=== PATIENT | male | born 1960 | race Caucasian/White ===

== ENCOUNTER 2016-09-22 16:06 | Emergency (ER) | payer BC ==
[2016-09-22] MEDS ORDERED: FAMOTIDINE 20 MG/NACL 50 ML IV ONE (17:37)
[2016-09-22] MEDS ORDERED: NS 1,000 ML IV ONE (17:37)
--- NOTE | 2016-09-22 17:47 | EDPHY ---
H & P Time Seen by Provider: 09/22/16 17:26 HPI/ROS: CHIEF COMPLAINT: Abdominal pain and distension HISTORY OF PRESENT ILLNESS: This 56-year-old man has a history of appendectomy. He sees Gastroenterology Dr. Yoo. The patient developed abdominal pain starting this last week on Monday with feeling of spasms and abdominal distension. He is having some bowel movements but no gas. Pain is located in the epigastric region and radiates down inferiorly to both lower quadrants. He was started on Bentyl by his physician on Monday but it is not helping. Symptoms today are moderate and worse with any oral intake. REVIEW OF SYSTEMS: Eye: no change in vision ENT: no sore throat Cardiac: no chest pain or syncope Pulmonary: no cough or SOB Abdomen: HPI Musculoskeletal: Chronic back pain, unchanged Skin: no rash Neuro: no headache, no weakness or numbness in legs. Constitutional: no fever, increasing anxiety. : no urinary symptoms; no hematuria or dysuria. No hesitancy or retention. A comprehensive 10 point review of systems is otherwise negative aside from elements mentioned in the history of present illness. PAST MEDICAL HISTORY: Includes depression and anxiety, chronic back pain, migraines and irritable bowel Social history: Marijuana but no tobacco General Appearance: Alert and conversant, cooperative. Eyes: No scleral icterus. ENT, Mouth: Normal mucous membranes. Respiratory: Normal respiratory effort, breath sounds equal, lungs are clear to auscultation. Cardiovascular: Regular rate and rhythm. Gastrointestinal: Bilateral lower quadrant tenderness without rebound or guarding. Bowel sounds present. Not distended, no Blanco sign. Neurological: Alert and oriented x3. Normally conversant. Face symmetric, normal movement and sensation in all extremities. Skin: Warm and dry, no rashes. Musculoskeletal: No peripheral edema and no joint swelling. Psychiatric: Not agitated. Very anxious. Emergency Department course/MDM: Pepcid 20 mg IV, oral Bentyl, normal saline IV, i-STAT plans for CT abdomen and pelvis. 1900: Re-examined, feels better, nontender; the results discussed, patient offered anti spasmodic agents in the emergency department but declined and would prefer to go home. DC with 4 doses 5mg valium. Smoking Status: Never smoked Constitutional: Initial Vital Signs Temperature (C) 36.4 C 09/22/16 16:19 Heart Rate 89 09/22/16 16:19 Respiratory Rate 17 09/22/16 16:19 Blood Pressure 134/104 H 09/22/16 16:19 O2 Sat (%) 98 09/22/16 16:19 O2 Delivery Mode Room Air Allergies/Adverse Reactions: No Known Allergies Allergy (Verified 02/02/16 20:35) Home Medications: Medication Instructions Recorded CeleBREX 03/21/15 Acet/Caffeine/Buta Fioricet 04/21/15 [Fioricet (RX)] Alprazolam [Xanax Xr] 1 mg PO 04/21/15 Atorvastatin Calcium [Lipitor] 10 mg PO DAILY 04/21/15 Citalopram Hydrobromide [celeXA 10 10 mg PO DAILY 04/21/15 MG] Esomeprazole Magnesium [Nexium] 04/21/15 Gabapentin [Neurontin 100 MG (RX)] 04/21/15 Mirtazapine [Remeron Soltab] 15 mg PO DAILY 04/21/15 SUMAtriptan [Imitrex 25 MG (RX)] 04/21/15 risperiDONE [Risperdal 0.25mg (RX)] 04/21/15 Crestor 02/02/16 Cyclobenzaprine [Flexeril] 10 mg PO TIDPRN PRN #12 tab 02/02/16 Meloxicam 02/02/16 Trileptal 02/02/16 Medical Decision Making - Diagnostics Imaging: CT reported by Dr. An as nothing new at 6:55 p.m., 4 x 6 mm right lower lung nodule which will require 12 month follow-up. No reason for abdominal pain. Differential Diagnosis: Differential diagnosis considered for abdominal pain including but not limited to diverticulitis, bowel obstruction, cholecystitis, pancreatitis, gastritis and urinary tract infection. - Data Points Laboratory Results: Laboratory Results 09/22/16 17:48 09/22/16 17:48 09/22/16 09/22/16 09/22/16 17:49 17:48 17:48 WBC 5.70 10^3/uL 10^3/uL (3.80-9.50) RBC 4.66 10^6/uL 10^6/uL (4.40-6.38) Hgb 13.3 g/dL L g/dL (13.7-17.5) POC Hgb 13.6 gm/dL L gm/dL (14.5-17.3) Hct 39.2 % L % (40.0-51.0) POC Hct 40 % L % (42.8-50.6) MCV 84.1 fL fL (81.5-99.8) MCH 28.5 pg pg (27.9-34.1) MCHC 33.9 g/dL g/dL (32.4-36.7) RDW 14.1 % % (11.5-15.2) Plt Count 150 10^3/uL 10^3/uL (150-400) MPV 10.9 fL fL (8.7-11.7) Neut % (Auto) 58.2 % % (39.3-74.2) Lymph % (Auto) 31.2 % % (15.0-45.0) [place] % (Auto) 7.7 % % (4.5-13.0) Eos % (Auto) 1.9 % % (0.6-7.6) Baso % (Auto) 0.5 % % (0.3-1.7) Nucleat RBC Rel Count 0.0 % % (0.0-0.2) Absolute Neuts (auto) 3.31 10^3/uL 10^3/uL (1.70-6.50) Absolute Lymphs (auto) 1.78 10^3/uL 10^3/uL (1.00-3.00) Absolute Monos (auto) 0.44 10^3/uL 10^3/uL (0.30-0.80) Absolute Eos (auto) 0.11 10^3/uL 10^3/uL (0.03-0.40) Absolute Basos (auto) 0.03 10^3/uL 10^3/uL (0.02-0.10) Absolute Nucleated RBC 0.00 10^3/uL 10^3/uL (0-0.01) Immature Gran % 0.5 % % (0.0-1.1) Immature Gran # 0.03 10^3/uL 10^3/uL (0.00-0.10) POC Sodium 140 mEq/L mEq/L (134-144) Sodium 138 mEq/L mEq/L (134-144) POC Potassium 3.6 mEq/L mEq/L (3.3-5.0) Potassium 3.8 mEq/L mEq/L (3.5-5.2) POC Chloride 103 mEq/L mEq/L (96-108) Chloride 103 mEq/L mEq/L (97-110) Carbon Dioxide 25 mEq/l mEq/l (22-31) Anion Gap 10 mEq/L mEq/L (8-16) POC BUN 17 mg/dL mg/dL (7-23) BUN 17 mg/dL mg/dL (7-23) Creatinine 0.7 mg/dL mg/dL (0.7-1.3) POC Creatinine 0.7 mg/dL L mg/dL (0.8-1.5) Estimated GFR > 60 Glucose 93 mg/dL mg/dL (70-100) POC Glucose 97 mg/dL mg/dL (70-100) Calcium 9.4 mg/dL mg/dL (8.5-10.4) Total Bilirubin 0.3 mg/dL mg/dL (0.1-1.4) Conjugated Bilirubin 0.3 mg/dL mg/dL (0.0-0.5) Unconjugated Bilirubin 0.0 mg/dL mg/dL (0.0-1.1) AST 16 IU/L L IU/L (17-59) ALT 30 IU/L IU/L (21-72) Alkaline Phosphatase 78 IU/L IU/L (38-126) Total Protein 6.3 g/dL g/dL (6.3-8.2) Albumin 3.9 g/dL g/dL (3.5-5.0) Lipase 76.0 IU/L IU/L (23-300) Medications Given: Discontinued Medications Diazepam (Valium 5 Mg Prepack#4) 1 btl TAKEHOME EDNOW ONE Stop: 09/22/16 19:08 Last Admin: 09/22/16 19:16 Dose: 1 btl Dicyclomine HCl (Bentyl) 20 mg PO EDNOW ONE Stop: 09/22/16 17:55 Last Admin: 09/22/16 18:56 Dose: 20 mg Sodium Chloride (Ns) 1,000 mls @ 0 mls/hr IV ONCE ONE PRN Reason: Wide Open Stop: 09/22/16 17:38 Last Admin: 09/22/16 18:01 Dose: 1,000 mls Famotidine/Sodium Chloride (Pepcid 20 Mg (Premix)) 50 mls @ 200 mls/hr IV EDNOW ONE Stop: 09/22/16 17:51 Last Admin: 09/22/16 18:00 Dose: 50 mls Point of Care Test Results: 09/22/16 17:49 POC Sodium 140 POC Potassium 3.6 POC Chloride 103 POC BUN 17 POC Creatinine 0.7 L POC Glucose 97 Departure - Departure Disposition: Home, Routine, Self-Care Clinical Impression: Abdominal pain Qualifiers: Abdominal location: lower abdomen, unspecified Qualified Code(s): R10.30 - Lower abdominal pain, unspecified Condition: Good Instructions: Abdominal Pain (ED) Additional Instructions: Oral diazepam 5 mg every 12 hours as needed for abdominal cramping. Do not use alcohol or Xanax with the diazepam. You have a 4 x 6 mm right lung nodule which requires a noncontrast CT scan follow-up in 12 months. Referrals: Billie Goldberg MD [Primary Care Provider] - As per Instructions Arturo Yoo MD [Medical Doctor] - As per Instructions
[2016-09-22] MEDS ORDERED: DICYCLOMINE 20 MG TAB PO ONE (17:54)
[2016-09-22] MEDS ORDERED: IOPAMIDOL (ISOVUE-300) 100 ML BTL IV ONE (18:08)
[2016-09-22 18:20] LABS: % IMMATURE GRANULYOCYTES 0.5 % (0.0-1.1); ABSOLUTE IMMATURE GRANULOCYTES 0.03 10^3/uL (0.00-0.10); ADD DIFF? NO; ADD MORPH? NO; ADD SCAN? NO; ATYPICAL LYMPHOCYTE FLAG 10 (0-99); FRAGMENT RBC FLAG 0 (0-99); HEMATOCRIT 39.2 % (40.0-51.0); HEMOGLOBIN 13.3 g/dL (13.7-17.5); LEFT SHIFT FLG 20 (0-99); LIPEMIA HEMOLYSIS FLAG 90 (0-99); MEAN CELL HEMOGLOBIN 28.5 pg (27.9-34.1); MEAN CELL HEMOGLOBIN CONCENTR. 33.9 g/dL (32.4-36.7); MEAN CELL VOLUME 84.1 fL (81.5-99.8); MEAN PLATELET VOLUME 10.9 fL (8.7-11.7); PLATELET CLUMPS FLAG 0 (0-99); PLATELET COUNT 150 10^3/uL (150-400); RED BLOOD CELL COUNT 4.66 10^6/uL (4.40-6.38); RED CELL DISTRIBUTION WIDTH 14.1 % (11.5-15.2)
[2016-09-22 18:25] LABS: ALANINE AMINOTRANSFERASE 30 IU/L (21-72); ALBUMIN 3.9 g/dL (3.5-5.0); ALKALINE PHOSPHATASE 78 IU/L (38-126); ANION GAP 10 mEq/L (8-16); ASPARTATE AMINOTRANSFERASE 16 IU/L (17-59); BILIRUBIN,TOTAL 0.3 mg/dL (0.1-1.4); BILIRUBIN-CONJUGATED 0.3 mg/dL (0.0-0.5); CALCIUM 9.4 mg/dL (8.5-10.4); CARBON DIOXIDE 25 mEq/l (22-31); CHLORIDE 103 mEq/L (97-110); CREATININE 0.7 mg/dL (0.7-1.3); GLOMERULAR FILTRATION RATE > 60; GLUCOSE 93 mg/dL (70-100); POTASSIUM 3.8 mEq/L (3.5-5.2); SODIUM 138 mEq/L (134-144); TOTAL PROTEIN 6.3 g/dL (6.3-8.2)
[2016-09-22] MEDS ORDERED: DIAZEPAM 5 MG PREPACK#4 BTL TAKEHOME ONE (19:07)
[2016-09-22 19:28] VITALS: BP 129/95; PULSE 85; RESP 12; TEMP 98.4; O2SAT 95
== END 2016-09-22 19:30 | disposition home or self-care (01) ==
DX: R10.30 Lower abdominal pain, unspecified (principal)
CPT/HCPCS: 82947-QW; 96374; Q9967

== ENCOUNTER 2017-02-04 12:20 | Inpatient (IN) | payer BC ==
--- NOTE | 2017-02-04 12:49 | CPEKG ---
Heart Rate: 79 RR Interval: 759 P-R Interval: 212 QRSD Interval: 82 QT Interval: 360 QTC Interval: 413 P [place]: 64 QRS [place]: 31 T Wave [place]: 24 EKG Severity - ABNORMAL ECG - EKG Impression: SINUS RHYTHM EKG Impression: FIRST DEGREE AV BLOCK Electronically Signed By: Jamie Pina 07-Feb-2017 14:35:06
--- NOTE | 2017-02-04 12:49 | EDPHY ---
HPI/HX/ROS/PE/MDM Narrative: CHIEF COMPLAINT: Chest pain HPI: The patient is a 57-year-old male who complains of intermittent chest pain for the past few weeks. Patient reports this pain has progressively worsened over the past few days. While at a [place] show a few days ago the patient became very short of breath and was diaphoretic after walking up the stairs. He developed chest pain at that time. This chest pain remained present throughout the concert and for the following two days. He saw his PCP and had a normal EKG. Patient went to another concert last night and developed chest heaviness. He reports intermittent "stabbing pains" and states his "left arm feels like a rock" when he has the chest pain. The patient has a history of anxiety, he is unsure if his symptoms are secondary to anxiety. The patient additionally notes headache for the past few days. He states he has gained 60 pounds over past 2 years. REVIEW OF SYSTEMS: Aside from elements discussed in the HPI, a comprehensive 10-point review of systems was reviewed and is negative. PMH: Anxiety SOCIAL HISTORY: Single. Lives in [place]. PHYSICAL EXAM: General: Patient is alert, in no acute distress. ENT: Eyes are normal to inspection. ENT inspection normal. Neck: Normal inspection. Full range of motion. Respiratory: No respiratory distress. Breath sounds normal bilaterally. Cardiovascular: Regular rate and rhythm. Strong peripheral pulses. Abdomen: The abdomen is nontender to palpation. There are no peritoneal signs. There are normal bowel sounds. Back: Normal to inspection. No tenderness to palpation. Skin: Normal color. No rash. Warm and dry. Extremities: Normal appearance. Full range of motion. Neuro: Oriented x3. Normal motor function. Normal sensory function. ED Course: Patient presents with intermittent chest pain that has been worsening over the past few days. Patient complains of stabbing chest pain that has been occurring more frequently with exertion. He has associated left arm heaviness as well as shortness of breath and diaphoresis. Plan for cardiac workup including chest x- ray, lab work, and Troponin. EKG was ordered and interpreted by myself: Sinus rhythm, AV block. Please see [employer] system for official reading. Chest x-ray is negative for acute findings. Troponin is negative. Lab work up is unremarkable. 1445: I spoke to the hospitalist, Dr. Vincent, who accepts patient for admission. MDM: This patient presents with exertional chest pain in the setting of multiple cardiac risk factors. I am very concerned this represents myocardial ischemia. I see no signs of PE, PTX, TAD, chest wall trauma or STEMI at this time. - Data Points Imaging Results: Imaging Impressions Chest X-Ray 02/04/17 13:10 Impression: Hypoventilatory chest with no acute findings. Imaging: Discussed imaging studies w/ call worker person Radiologist, I viewed and interpreted images myself Laboratory Results: Laboratory Results 02/04/17 12:57 02/04/17 12:57 02/04/17 02/04/17 12:57 12:57 WBC 7.21 10^3/uL 10^3/uL (3.80-9.50) RBC 4.76 10^6/uL 10^6/uL (4.40-6.38) Hgb 13.7 g/dL g/dL (13.7-17.5) Hct 40.9 % % (40.0-51.0) MCV 85.9 fL fL (81.5-99.8) MCH 28.8 pg pg (27.9-34.1) MCHC 33.5 g/dL g/dL (32.4-36.7) RDW 13.8 % % (11.5-15.2) Plt Count 187 10^3/uL 10^3/uL (150-400) MPV 10.8 fL fL (8.7-11.7) Neut % (Auto) 72.3 % % (39.3-74.2) Lymph % (Auto) 20.2 % % (15.0-45.0) [place] % (Auto) 5.7 % % (4.5-13.0) Eos % (Auto) 0.8 % % (0.6-7.6) Baso % (Auto) 0.7 % % (0.3-1.7) Nucleat RBC Rel Count 0.0 % % (0.0-0.2) Absolute Neuts (auto) 5.21 10^3/uL 10^3/uL (1.70-6.50) Absolute Lymphs (auto) 1.46 10^3/uL 10^3/uL (1.00-3.00) Absolute Monos (auto) 0.41 10^3/uL 10^3/uL (0.30-0.80) Absolute Eos (auto) 0.06 10^3/uL 10^3/uL (0.03-0.40) Absolute Basos (auto) 0.05 10^3/uL 10^3/uL (0.02-0.10) Absolute Nucleated RBC 0.00 10^3/uL 10^3/uL (0-0.01) Immature Gran % 0.3 % % (0.0-1.1) Immature Gran # 0.02 10^3/uL 10^3/uL (0.00-0.10) Sodium 138 mEq/L mEq/L (134-144) Potassium 4.3 mEq/L mEq/L (3.5-5.2) Chloride 105 mEq/L mEq/L (97-110) Carbon Dioxide 20 mEq/l L mEq/l (22-31) Anion Gap 13 mEq/L mEq/L (8-16) BUN 14 mg/dL mg/dL (7-23) Creatinine 0.7 mg/dL mg/dL (0.7-1.3) Estimated GFR > 60 Glucose 110 mg/dL H mg/dL (70-100) Calcium 9.9 mg/dL mg/dL (8.5-10.4) Troponin I < 0.012 ng/mL ng/mL (0-0.034) Medications Given: Discontinued Medications Aspirin (Aspirin) 324 mg PO EDNOW ONE Stop: 02/04/17 13:11 Last Admin: 02/04/17 13:31 Dose: 324 mg Morphine Sulfate (Morphine) 2 mg IVP EDNOW ONE Stop: 02/04/17 13:11 Last Admin: 02/04/17 13:32 Dose: 2 mg General Time Seen by Provider: 02/04/17 12:36 Initial Vital Signs: Initial Vital Signs Temperature (C) 36.5 C 02/04/17 12:25 Heart Rate 81 02/04/17 12:25 Respiratory Rate 18 02/04/17 12:25 Blood Pressure 138/92 H 02/04/17 12:25 O2 Sat (%) 98 02/04/17 12:25 O2 Delivery Mode Room Air O2 (L/minute) 2 Allergies/Adverse Reactions: No Known Allergies Allergy (Verified 02/04/17 12:29) Home Medications: Medication Instructions Recorded Oxcarbazepine [Trileptal] 600 mg PO BID 02/02/16 ALPRAZolam [Alprazolam Xr] 3 mg PO DAILY@89902/04/17 ALPRAZolam [Xanax Xr] 2 mg PO DAILY@209902/04/17 Butal/Asp/Caffeine-Fiorinal 1 each PO BID 02/04/17 [Fiorinal 50-325-40 mg Cap] Cholecalciferol Vit D3 [Vitamin D3 2,000 units PO DAILY@89902/04/17 (*)] Cyanocobalamin [Vitamin B12 (*)] 2,000 mcg PO DAILY@209902/04/17 Esomeprazole Mag Trihydrate 40 mg PO BID 02/04/17 [Nexium] Herbals/Supplements -Info Only 1 each IM Q30D 02/04/17 Losartan Potassium [Cozaar 50 mg 50 mg PO DAILY@209902/04/17 (*)] Mirtazapine [Remeron] 30 mg PO DAILY@209902/04/17 Oxcarbazepine [Trileptal] 150 mg PO BID 02/04/17 PHENobarbital [PHENobarbital 30mg 15 mg PO DAILY@209902/04/17 (*)] Pregabalin [Lyrica 50mg (*)] 50 mg PO BID 02/04/17 Sumatriptan Succinate [Imitrex] 100 mg PO ONCE PRN MDD 200 MG 02/04/17 Venlafaxine Xr [Effexor Xr 75MG 75 mg PO DAILY@209902/04/17 (*)] Venlafaxine Xr [Effexor Xr] 150 mg PO DAILY@89902/04/17 predniSONE 5 mg PO DAILY@89902/04/17 risperiDONE [RisperDAL] 1 mg PO DAILY@209902/04/17 Departure - Departure Disposition: [facility] Inpatient Acute Clinical Impression: Chest pain Qualifiers: Chest pain type: unspecified Qualified Code(s): R07.9 - Chest pain, unspecified Condition: Fair Report Scribed for: Alex Horton Report Scribed by: Nereida Rodriguez Date of Report: 02/04/17 Time of Report: 12:49 Physician Review and Approval Statement: Portions of this note were transcribed by a medical transcriber. I personally performed the history, physical exam, and medical decision-making; and confirmed the accuracy of the information in the transcribed note.
[2017-02-04] MEDS ORDERED: ASPIRIN 81 MG CHEWABLE TAB PO ONE (13:10)
[2017-02-04 13:16] LABS: % IMMATURE GRANULYOCYTES 0.3 % (0.0-1.1); ABSOLUTE IMMATURE GRANULOCYTES 0.02 10^3/uL (0.00-0.10); ADD DIFF? NO; ADD MORPH? NO; ADD SCAN? NO; ATYPICAL LYMPHOCYTE FLAG 0 (0-99); FRAGMENT RBC FLAG 0 (0-99); HEMATOCRIT 40.9 % (40.0-51.0); HEMOGLOBIN 13.7 g/dL (13.7-17.5); LEFT SHIFT FLG 0 (0-99); LIPEMIA HEMOLYSIS FLAG 80 (0-99); MEAN CELL HEMOGLOBIN 28.8 pg (27.9-34.1); MEAN CELL HEMOGLOBIN CONCENTR. 33.5 g/dL (32.4-36.7); MEAN CELL VOLUME 85.9 fL (81.5-99.8); MEAN PLATELET VOLUME 10.8 fL (8.7-11.7); PLATELET CLUMPS FLAG 0 (0-99); PLATELET COUNT 187 10^3/uL (150-400); RED BLOOD CELL COUNT 4.76 10^6/uL (4.40-6.38); RED CELL DISTRIBUTION WIDTH 13.8 % (11.5-15.2)
[2017-02-04 13:32] LABS: ANION GAP 13 mEq/L (8-16); CALCIUM 9.9 mg/dL (8.5-10.4); CARBON DIOXIDE 20 mEq/l (22-31); CHLORIDE 105 mEq/L (97-110); CREATININE 0.7 mg/dL (0.7-1.3); GLOMERULAR FILTRATION RATE > 60; GLUCOSE 110 mg/dL (70-100); POTASSIUM 4.3 mEq/L (3.5-5.2); SODIUM 138 mEq/L (134-144)
[2017-02-04 13:44] LABS: TROPONIN I < 0.012 ng/mL (0-0.034)
[2017-02-04] MEDS ORDERED: ONDANSETRON 4 MG/2 ML VIAL IVP PRN (14:42)
[2017-02-04] MEDS ORDERED: ONDANSETRON DISINTEGRATING 4 MG TAB PO PRN (14:42)
[2017-02-04] MEDS ORDERED: NS 500 ML IV ONE (14:42)
[2017-02-04] MEDS ORDERED: ACETAMINOPHEN 325 MG TAB PO PRN (14:42)
[2017-02-04] MEDS ORDERED: NS 1,000 ML IV ONE (15:38)
[2017-02-04] MEDS ORDERED: KETOROLAC 30 MG/1 ML SDV IVP ONE (15:39)
[2017-02-04] MEDS ORDERED: PROMETHAZINE HCL 25 MG/ML INJ IVP ONE (15:39)
[2017-02-04] MEDS ORDERED: BUTAL/ASP/CAFFEINE-FIORINAL 1 EACH CAP PO PRN (17:29)
--- NOTE | 2017-02-04 17:35 | GHP ---
[f rep st] HISTORY AND PHYSICAL DATE OF ADMISSION: 02/04/2017 CHIEF COMPLAINT: Chest pain. HISTORY OF PRESENT ILLNESS: A 57-year-old male with a history of fibromyalgia, suspected polymyalgia rheumatica, and depression/anxiety, who presents with several weeks of intermittent left-sided chest pressure and occasionally sharp chest pain. The patient reports that, in the course of the last 2-3 weeks, he has had increasing frequency of episodes of chest tightness on the left side of his chest associated with a heavy feeling left arm, and occasionally associated with a sharp stabbing left-sided chest pain. These episodes can last anywhere from minutes to hours, are not predictably provoked by exertion, but can come on with exertion and respond to rest, but additionally can come on at rest. The patient predictably has diaphoresis and shortness of breath with the episodes, and notes that in the course of the last week or so they have been occurring with more regular frequency. Patient is a frequent concert goer, and has noticed particularly at [place] on walking up the stairs that he becomes very winded with a tight chest and diaphoresis. The patient does report having had a cardiac scan of his heart in the last year and reported that his calcium score was quite low. He did see his primary care for these complaints, Dr. Goldberg, who performed an EKG which was normal. He then continued to have symptoms; therefore, presented to the emergency department. In the ED, the patient is reporting headache. Denies vision changes. Denies dysphagia. Is having low-level chest pressure. Denies shortness of breath. Denies pleuritic chest pain. Denies nausea and vomiting. Has had mild constipation recently. Denies dysuria. Denies lower extremity edema. Does have chronic peripheral neuropathy of the bilateral feet. Patient reports a 60-pound weight gain in the past year and a half to 2 years, that he attributes to the use of psychotropic medications. PAST MEDICAL HISTORY: 1. Major depressive disorder. 2. Anxiety. 3. Fibromyalgia. 4. Polymyalgia rheumatica. His activities leader actively weaning daily prednisone. 5. Peripheral neuropathy. 6. Obesity; BMI of 33. SOCIAL HISTORY: Negative for tobacco, alcohol, illicit drugs, and marijuana. FAMILY HISTORY: Positive for mother who has had 2 cardiac stents placed in her 60s, and a grandfather on the maternal side who has history of a stroke. ADVANCED DIRECTIVES: Patient is full code, full tube. REVIEW OF SYSTEMS: A 10-point review of systems is negative with the exception of that reported in the HPI. PHYSICAL EXAMINATION: VITAL SIGNS: Blood pressure is 144/95 heart rate 74, respiratory rate 16, 95% on room air 36 5. GENERAL: This is an obese-appearing middle-aged male. HEENT: Notable for moist mucous membranes. Eye negative for any icterus. CARDIAC: Regular rate and rhythm. No murmurs, gallops, or rubs. PULMONARY: Clear to auscultation bilaterally. GASTROINTESTINAL: Positive bowel sounds. ABDOMEN: Distended, obese, and nontender in all 4 quadrants. MUSCULOSKELETAL: Negative for any lower extremity edema. SKIN: Negative for any rashes. NEUROLOGIC: Alert and oriented x3. PSYCHIATRIC: He appears anxious on my examination. DATA: White count 7.2, hematocrit 40.9, platelets of 187. Creatinine 0.7. Troponin less than 0.012. EKG, which I personally reviewed and interpreted, shows sinus rhythm with 1st degree AV block, no acute ST-T changes. Chest x-ray , which I personally reviewed and interpreted, shows no acute infiltrates or edema. ASSESSMENT AND PLAN: This is a 57-year-old male presenting with chest pain. 1. Acute chest pain. It is very reassuring that the patient is presenting with a recent cardiac calcium score that is low. An episode of chest pain he reports the evening prior to presentation that lasted many hours, and the patient is presenting with a negative troponin. EKG is benign. Will admit the patient for serial troponins and EKGs. If he rules out, will order a nuclear stress as the patient does not feel he could effectively treadmill test. 2. Obesity. Suspect patient is correct that some of his psychoactive medications likely have contributed to weight gain. He is receiving active coaching from Dr. Goldberg in the outpatient setting about lifestyle modification, and I have encouraged him to continue on that path. 3. Major depressive disorder/anxiety. Patient is on a multi-drug regimen which will continue once reconciled. 4. Suspected polymyalgia rheumatica. Patient reports that his full body pain improved quite a lot on daily prednisone dosing. It sounds as if his activities leader has been working to wean his dose. He reports when he got to prednisone 5, he started having symptoms again; was weaned down to 2 but has self up titrated back to 5 in the past week. Will continue this 5 mg dosing while inpatient. 5. Acute Headache - pt with chronic intermittent headaches - would like to avoid narcotics - trial IV phenergan and toradol 6. Diet: Cardiac. 7. Prophylaxis: Treating with Lovenox as I do not expect the patient will get up and move much while hospitalized. DISPOSITION: I expect less than 2 midnights if the patient effectively rules out overnight and has negative stress testing in the morning. I have discussed the case with the emergency room physician. Patient will be triaged to the medical-surgical floor for care. /[id number]/MODL MTDD
[2017-02-04] MEDS ORDERED: OXCARBAZEPINE 600 MG PO SCH (21:00)
[2017-02-04] MEDS ORDERED: ALPRAZOLAM 2 MG PO SCH (21:00)
[2017-02-04] MEDS: risperiDONE 1 MG TAB PO SCH (21:37)
[2017-02-04] MEDS: PREGABALIN 50 MG CAP PO SCH (21:37)
[2017-02-04] MEDS: VENLAFAXINE XR 75 MG CAP PO SCH (21:37)
[2017-02-04] MEDS: ALPRAZolam 1 MG TAB PO SCH (21:37)
[2017-02-04] MEDS: MIRTAZAPINE 30 MG TAB PO SCH (21:37)
[2017-02-04] MEDS: CYANO/VITAMIN B12 1000 MCG TAB PO SCH (21:37)
[2017-02-04] MEDS: PANTOPRAZOLE SODIUM 40 MG TAB PO SCH (21:38)
[2017-02-04] MEDS: LOSARTAN POTASSIUM 50 MG TAB PO SCH (21:38)
[2017-02-04] MEDS: PHENobarbital 30 MG TAB PO SCH (21:39)
[2017-02-04] MEDS: OXcarbazepine 300 MG TAB PO SCH (21:40)
[2017-02-04] MEDS: KETOROLAC 30 MG/1 ML SDV IVP PRN (22:04)
[2017-02-04] MEDS: PROMETHAZINE HCL 25 MG/ML INJ IVP PRN (22:04)
[2017-02-05] MEDS: ALPRAZolam 1 MG TAB PO PRN ×2 (05:03→22:14)
[2017-02-05] MEDS: KETOROLAC 30 MG/1 ML SDV IVP PRN ×4 (05:03→22:14)
[2017-02-05] MEDS: PROMETHAZINE HCL 25 MG/ML INJ IVP PRN ×4 (05:03→22:15)
[2017-02-05] MEDS ORDERED: REGADENOSON 0.4 MG/5 ML SYR IVP ONE (09:00)
[2017-02-05] MEDS ORDERED: ALPRAZOLAM 3 MG PO SCH (09:00)
--- NOTE | 2017-02-05 09:34 | PDCARST ---
CAR Stress Test Results Type of Stress Test: lexiscan tm Indication: cp Impression: uneventful lexiscan tm..no issues Conclusion: await nuclear images
[2017-02-05] MEDS: VENLAFAXINE XR 150 MG CAP PO SCH (10:11)
[2017-02-05] MEDS: ALPRAZolam 1 MG TAB PO SCH ×3 (10:11→20:12)
[2017-02-05] MEDS: OXcarbazepine 300 MG TAB PO SCH ×2 (10:12→20:09)
[2017-02-05] MEDS: PREGABALIN 50 MG CAP PO SCH ×2 (10:14→20:12)
[2017-02-05] MEDS: predniSONE 5 MG TAB PO SCH (10:14)
[2017-02-05] MEDS: ENOXAPARIN 40 MG/0.4 ML SYR SC SCH (10:17)
[2017-02-05] MEDS: PANTOPRAZOLE SODIUM 40 MG TAB PO SCH ×2 (10:23→20:09)
[2017-02-05] MEDS: CHOLECALCIFEROL VIT D3 2,000 UNITS TAB/CAP PO SCH (10:23)
--- NOTE | 2017-02-05 13:40 | HOSPPROG ---
Hospitalist Progress Note Assessment/Plan: 57y male with c/o CP. This is my first encounter, chart reviewed. D/W Dr Jameson. #CP stress test done some abnormalities needs resting test in am symptoms have resolved and trop is negative #Headache cont home meds #Anxiety cont home meds stable #SOB none currently #Obesity lifestyle changes reviewed #Poly rheumatica cont home meds #Dispo await resting study change to inpt status Subjective: Feeling anxious about situation. C/O headache. Objective: Vital Signs Temp Pulse Resp BP Pulse Ox 36.6 C 63 14 124/83 H 93 02/05/17 08:00 02/05/17 08:00 02/05/17 08:00 02/05/17 08:00 02/05/17 08:00 - Physical Exam Constitutional: appears nourished, not in pain, obese Eyes: PERRL, anicteric sclera, EOMI Ears, Nose, Mouth, Throat: moist mucous membranes, hearing normal, ears appear normal Cardiovascular: regular rate and rhythym, no murmur, rub, or gallop, No JVD Respiratory: no respiratory distress, no rales or rhonchi, reduced air movement Gastrointestinal: normoactive bowel sounds, soft, non-tender abdomen, No tenderness, No ascites Skin: warm, normal color, No erythema Musculoskeletal: full muscle strength, normal joint ROM, no joint effusions Neurologic: AAOx3 Psychiatric: not encephalopathic, thought process linear, anxious ICD10 Worksheet Patient Problems: Problems Problem Status Onset Chest pain Acute
[2017-02-05] MEDS: SUMAtriptan 50 MG TAB PO PRN (14:07)
[2017-02-05] MEDS: risperiDONE 1 MG TAB PO SCH (20:09)
[2017-02-05] MEDS: PHENobarbital 30 MG TAB PO SCH (20:09)
[2017-02-05] MEDS: LOSARTAN POTASSIUM 50 MG TAB PO SCH (20:10)
[2017-02-05] MEDS: CYANO/VITAMIN B12 1000 MCG TAB PO SCH (20:12)
[2017-02-05] MEDS: VENLAFAXINE XR 75 MG CAP PO SCH (20:12)
[2017-02-05] MEDS: MIRTAZAPINE 30 MG TAB PO SCH (20:12)
[2017-02-06] MEDS: ALPRAZolam 1 MG TAB PO PRN ×2 (03:31→13:29)
[2017-02-06] MEDS: predniSONE 5 MG TAB PO SCH (09:11)
[2017-02-06] MEDS: ALPRAZolam 1 MG TAB PO SCH ×3 (09:11→20:16)
[2017-02-06] MEDS: PREGABALIN 50 MG CAP PO SCH ×2 (09:11→20:16)
[2017-02-06] MEDS: CHOLECALCIFEROL VIT D3 2,000 UNITS TAB/CAP PO SCH (09:11)
[2017-02-06] MEDS: PANTOPRAZOLE SODIUM 40 MG TAB PO SCH ×2 (09:11→20:17)
[2017-02-06] MEDS: OXcarbazepine 300 MG TAB PO SCH ×2 (09:12→20:15)
[2017-02-06] MEDS: VENLAFAXINE XR 150 MG CAP PO SCH (09:12)
--- NOTE | 2017-02-06 09:32 | HOSPPROG ---
Hospitalist Progress Note Assessment/Plan: 57y male with c/o CP. This is my first encounter, chart reviewed. #CP stress test done/ shows anterior & Posterior wall defects resting test today patient has family hx of heart disease in both mom and dad trop are negative 12 lead shows sinus rhythm #Headache none today #GERD PPI #Anxiety cont home meds stable #SOB none currently #Obesity lifestyle changes reviewed he has put on weight w the prednisone, Lyrica, Remeron going to consider starting pool therapy #Poly rheumatica prednisone #Dispo pending/awaiting cardiology to further evaluate Subjective: Andrea is having no c/o chest pain but it occurs intermittently. Objective: Vital Signs Temp Pulse Resp BP Pulse Ox 36.6 C 72 16 152/88 H 93 02/06/17 07:13 02/06/17 07:13 02/06/17 07:13 02/06/17 07:13 02/06/17 07:13 - Physical Exam Constitutional: not in pain Eyes: PERRL Ears, Nose, Mouth, Throat: hearing normal Cardiovascular: regular rate and rhythym Respiratory: no respiratory distress Gastrointestinal: normoactive bowel sounds Skin: warm Musculoskeletal: full muscle strength Neurologic: AAOx3 Psychiatric: interacting appropriately ICD10 Worksheet Patient Problems: Problems Problem Status Onset Chest pain Acute
[2017-02-06] MEDS: ENOXAPARIN 40 MG/0.4 ML SYR SC SCH (09:49)
[2017-02-06] MEDS: PROMETHAZINE HCL 25 MG/ML INJ IVP PRN ×2 (11:43→20:14)
[2017-02-06] MEDS: KETOROLAC 30 MG/1 ML SDV IVP PRN ×2 (11:44→20:14)
--- NOTE | 2017-02-06 14:34 | GCON ---
[f rep st] CONSULTATION CARDIOLOGY CONSULTATION CHIEF COMPLAINT: Chest pain. HISTORY OF PRESENT ILLNESS: The patient is a big man, who has been getting big chest pain. He has been noticing when he goes to [employer] lately, that he cannot climb very well and g ets short of breath. On the stairs at [employer], he gets short of breath. He does not get chest pa in. In the last week or 10 days, he has developed more left chest pressure, and it sort takes his b reath away a bit, and it bothers him a good deal, significant discomfort. He has been noticing this pressure. It has been getting more frequent and more severe, and it is on the left chest. It does not wake him up and it does not occur at sleep. He has no orthopnea normally. He has no PND. He has no peripheral edema. He is not lightheaded or dizzy. He has not had syncope or near syncope. He is not having palpitations. He has not had any trauma to the head, neck, or chest recently. He has no history of rheumatic disease, claudication or cerebrovascular disease. No history of hemoptysis, tuberculosis, peripheral edema. He has no history of atrial arrhythmias, atrial fibrillation and pulmonary embolic disease. No hist ory of deep venous thrombosis. He has not had fever and chills. No nausea, vomiting, diarrhea, or constipation. No dysuria or frequency. No upper respiratory tract symptoms. CARDIAC RISK FACTORS: Positive for obesity, hypertension, pre diabetes, hyperlipidemia. Negative for smoking, hyperuricemia or family history of premature coronary disease. He has no known coronary artery disease. ALLERGIES: None. MEDICATIONS AT HOME: Include Effexor, Lyrica, codeine, Risperdal, Imitrex, Remeron, Nexium and Xana x. Chronic prednisone use. REVIEW OF SYSTEMS: A 12-point review of systems negative, except as noted above. NEUROLOGIC: He also has a very significant peripheral neuropathy. ENDOCRINE: He is markedly obese . PSYCHIATRIC: He has major depressive issues. He is totally disabled with mental health issues. He has chronic anxiety. MUSCULOSKELETAL: He has fibromyalgia. RHEUMATIC: He has polymyalgia rheuma fei. FAMILY HISTORY: No premature coronary disease. No history of unexplained sudden at a young a ge. SOCIAL HISTORY: He was born in [place], [place]. He stayed there until 15, at which point he was sophomore in high school. He went to [employer] to finish high school. 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, and then to [employer], and he studied [employer], Management is 3 degrees and that. He is disabled as him for mental health issues. He does not smoke. He does not drink significant a renae of alcohol. He tries to walk on a regular basis, but he is a very hard time on a consistent basis, because of hi s neuropathy. He also has gained 60 pounds in the last year from medications. PHYSICAL EXAMINATION: VITAL SIGNS: Blood pressure 130/70, heart rate 66, respiratory rate 12, afeb rile. HEENT: Pupils equal and reactive. Mucous membranes and mouth moist. NECK: Supple. CARDIO VASCULAR: S1, S2. Soft systolic murmur, left sternal border. No diastolic murmur. No S3, S4, no rubs. PULMONARY: Rhonchi bilaterally. No rales, wheezing, or dullness. ABDOMEN: Soft, nontender , without masses. EXTREMITIES: No edema, inflammation or ulceration. NEURO: Cranial nerves 2-12 grossly normal. Motor and sensory intact. SKIN: Age-related changes. PSYCH: No obvious anxiety or depression. LABORATORY DATA: Creatinine 0.7, glucose 110. Troponin negative. Sodium 138, potassium 4.3, chlor radha 105, CO2 is 20. White count 7.21, hematocrit is 40, platelets are 187. Chest x-ray reported as negative. EKG shows no acute changes. Repeat troponin 0.012. Nuclear stress test: He has an abnormal nuclear stress test with possibly an anterior defect. ASSESSMENT AND PLAN: 1. Chest pain. 2. Shortness of breath. 3. Dyspnea on exertion. 4. A 60-pound weight gain. 5. Anxiety. 6. Depression. 7. Polymyalgia rheumatica. 8. Fibromyalgia. 9. Neuropathy. 10. Obesity. 11. Dyslipidemia. 12. Diabetes. 13. Hypertension. This gentleman has many risk factors for coronary disease. He reports a calcium score of 1 within t he year. Nonetheless, he is getting exertional left chest pressure on a regular basis, and has all these risk factors, so I went over with him the options, which could include seeing him in the offic e, following him very closely, and doing a repeat nuclear study and/or coronary angiography. I suly mmend coronary angiography, even though he has calcium score of 1, because of his many risk factors, and the classic sound to his story of chest discomfort, as an anginal equivalent. I would be very concerned if he did not have an angiogram and went home with incomplete data, in the sense that he could have a myocardial infarction with all the possible sequelae. He has agreed to angiography, at least he is going to think about it overnight. If he gets too anxi ous or upset about it, he may change his mind tomorrow, but for now, he is on for tomorrow. This chest pain, in terms of the differential diagnosis, there is nothing to suggest disease of the great vessels. Pulses are full and equal. Nothing to suggest pulmonary embolic disease. Nothing t o suggest congenital anomalies. There is nothing to suggest major GI or pulmonary pathology right at this time. However, we will wa tch him closely and see what develops. It would be quite unlikely to have significant obstructive coronary disease, if his calcium score sonal whitaker is 1, but I am one who does not believe in calcium scores, so I would not want to hang my hat on that. It is said that, if the calcium score is 0, the predictive risk of that is very accurate, but this i s not a 0. We will see what he wants to do tomorrow, and go from there. I talked to the hospitalists about his consultation. /[id number]/MODL
--- NOTE | 2017-02-06 16:44 | ECHO ---
[id number] + + [address] : : [place] [address] : : [phone] + + Adult Echocardiographic Report + + :Name: JEWELL MIXjennyalla Date: 02/06/2017 03:15 PM : : Hospital Admission Number: [id number] Lo cation: 372: :: 1960 Gender: Male Height: 75 in : :Age: 57 yrs Race: WH Weight: 26 7 lb : :Reason For Study: Eval LV Fx : : BSA: 2.5 m eters2 : :History: Chest Pressure : + + MMode/2D Measurements \T\ Calculations IVSd: 1.0 cm LVIDd: 3.8 cm FS: 40.9 % Ao root diam: 3.2 cm LVPWd: 1.2 cm LVIDs: 2.3 cm EDV(Teich): 62.9 ml ACS: 1.7 cm ESV(Teich): 17.3 ml EF(Teich): 72.5 % Normal Measurement Values: + + :LVIDd (3.5-5.7cm) IVSd (0.6-1.1cm) LVPWd (0.6-1.1cm) Aortic Root (2.0-3.7cm)Left Atrium (1.5-4.0cm): :LV Vol(d) (76-115ml) LV Vol(s) (29-48ml) Ejec Fraction (50-65%)PV Christopher (0.6- 1.2m/s) TV Christopher (0.4-1.0m/s) : :MV E Christopher (0.8-1.0m/s)MV A Christopher (0.3-1.0m/s)LVOT Christopher (0.7-1.2m/s) Asc Ao Christopher ( 0.9-1.8m/s) : + + Doppler Measurements \T\ Calculations MV E max christopher: Ao V2 max: LV V1 max: PA V2 max: 76.0 cm/sec 143.9 cm/sec 101.2 cm/sec 120.8 cm/sec MV A max christopher: Ao max PG: LV V1 max PG: PA max P.4 cm/sec 8.3 mmHg 4.1 mmHg 5.8 mmHg MV E/A: 0.90 Left Ventricle The left ventricle is normal in size. There is normal left ventricular wall thickness. The left ventricular ejection fraction is normal. There is Doppler evidence for diastolic dysfunction. Ejection Fraction = 72%. The left ventricular wall motion is normal. Right Ventricle The right ventricle is normal in size and function. Atria The left atrial size is normal. Right atrial size is normal. Mitral Valve The mitral valve is normal in structure and function. There is no evidence of mitral valve prolapse. There is no mitral valve stenosis. There is no mitral regurgitation noted. Tricuspid Valve The tricuspid valve is normal in structure and function. There is trace tricuspid regurgitation. Right ventricular systolic pressure is normal. Aortic Valve The aortic valve is normal in structure and function. The aortic valve is trileaflet. The aortic valve opens well. There is no aortic stenosis. There is no aortic insufficiency. Pulmonic Valve The pulmonic valve is normal in structure and function. There is no pulmonic valvular regurgitation. Conclusion A complete two-dimensional transthoracic echocardiogram was performed (2D, M-mode, Doppler and color flow Doppler). The left ventricular ejection fraction is normal. There is Doppler evidence for diastolic dysfunction. Ejection Fraction = 72%. The left ventricular wall motion is normal. The right ventricle is normal in size and function. The left atrial size is normal. The mitral valve is normal in structure and function. The tricuspid valve is normal in structure and function. There is trace tricuspid regurgitation. Right ventricular systolic pressure is normal. The aortic valve is normal in structure and function. The aortic valve is trileaflet. The pulmonic valve is normal in structure and function. There is no pulmonic valvular regurgitation. Final Reading Physician: Elmer Wing signed on 02/06/2017 04:43 PM Ordering Physician: Harish Javed Performed By: Minh Limon, CS
[2017-02-06] MEDS: LOSARTAN POTASSIUM 50 MG TAB PO SCH (20:14)
[2017-02-06] MEDS: CYANO/VITAMIN B12 1000 MCG TAB PO SCH (20:15)
[2017-02-06] MEDS: risperiDONE 1 MG TAB PO SCH (20:15)
[2017-02-06] MEDS: PHENobarbital 30 MG TAB PO SCH (20:15)
[2017-02-06] MEDS: MIRTAZAPINE 30 MG TAB PO SCH (20:15)
[2017-02-06] MEDS: VENLAFAXINE XR 75 MG CAP PO SCH (20:16)
[2017-02-06] MEDS ORDERED: ZOLPIDEM TARTRATE 5 MG TAB PO SCH (21:00)
[2017-02-07] MEDS: ALPRAZolam 1 MG TAB PO PRN ×2 (03:47→13:22)
[2017-02-07] MEDS ORDERED: diphenhydrAMINE 25 MG CAP PO ONE ×2 (06:34→08:57)
[2017-02-07] MEDS ORDERED: DIAZEPAM 5 MG TAB PO ONE (06:34)
[2017-02-07] MEDS ORDERED: NS 1,000 ML IV ONE (06:34)
[2017-02-07] MEDS ORDERED: FAMOTIDINE 20 MG TAB PO ONE (06:34)
[2017-02-07] MEDS ORDERED: ASPIRIN EC 325 MG TAB PO ONE ×2 (06:34→08:57)
[2017-02-07 07:14] LABS: % IMMATURE GRANULYOCYTES 0.3 % (0.0-1.1); ABSOLUTE IMMATURE GRANULOCYTES 0.02 10^3/uL (0.00-0.10); ADD DIFF? NO; ADD MORPH? NO; ADD SCAN? NO; ATYPICAL LYMPHOCYTE FLAG 0 (0-99); FRAGMENT RBC FLAG 0 (0-99); HEMATOCRIT 40.7 % (40.0-51.0); HEMOGLOBIN 13.4 g/dL (13.7-17.5); LEFT SHIFT FLG 0 (0-99); LIPEMIA HEMOLYSIS FLAG 80 (0-99); MEAN CELL HEMOGLOBIN 28.5 pg (27.9-34.1); MEAN CELL HEMOGLOBIN CONCENTR. 32.9 g/dL (32.4-36.7); MEAN CELL VOLUME 86.4 fL (81.5-99.8); MEAN PLATELET VOLUME 10.9 fL (8.7-11.7); PLATELET CLUMPS FLAG 0 (0-99); PLATELET COUNT 158 10^3/uL (150-400); RED BLOOD CELL COUNT 4.71 10^6/uL (4.40-6.38); RED CELL DISTRIBUTION WIDTH 13.5 % (11.5-15.2)
[2017-02-07 07:35] LABS: INR 0.91 (0.83-1.16); PROTIME(PATIENT) 12.1 SEC (12.0-15.0)
[2017-02-07 07:53] LABS: ANION GAP 11 mEq/L (8-16); CALCIUM 9.6 mg/dL (8.5-10.4); CARBON DIOXIDE 21 mEq/l (22-31); CHLORIDE 109 mEq/L (97-110); CREATININE 0.8 mg/dL (0.7-1.3); GLOMERULAR FILTRATION RATE > 60; GLUCOSE 98 mg/dL (70-100); HIGH DENSITY LIPOPROTEIN 52 mg/dL (40-65); MAGNESIUM 1.9 mg/dL (1.6-2.3); POTASSIUM 4.5 mEq/L (3.5-5.2); SODIUM 141 mEq/L (134-144); TRIGLYCERIDE 395 mg/dL (40-150); VERY LOW DENSITY LIPOPROTEINS 79 mg/dL (8-25)
[2017-02-07 08:18] LABS: CHOLESTEROL 342 mg/dL (140-220); CHOLESTEROL/HDL RATIO 6.58 RATIO (1.00-4.97); LDL/HDL RATIO 4.06 RATIO (1.00-3.64); LOW DENSITY LIPOPROTEIN 211 mg/dL (80-100); NON-HIGH DENSITY LIPOPROTEIN 290 mg/dL (90-129)
[2017-02-07] MEDS ORDERED: DIAZEPAM 5 MG TAB ONE (08:57)
[2017-02-07] MEDS ORDERED: FAMOTIDINE 20 MG TAB ONE (08:57)
--- NOTE | 2017-02-07 09:27 | CPEKG ---
Heart Rate: 70 RR Interval: 857 P-R Interval: 212 QRSD Interval: 82 QT Interval: 368 QTC Interval: 398 P [place]: 49 QRS [place]: 15 T Wave [place]: 7 EKG Severity - ABNORMAL ECG - EKG Impression: SINUS RHYTHM EKG Impression: FIRST DEGREE AV BLOCK Electronically Signed By: Jamie Pina 07-Feb-2017 14:35:02
[2017-02-07] MEDS ORDERED: LIDOCAINE 1% 300 MG/30 ML SDV ONE (09:35)
[2017-02-07] MEDS ORDERED: fentaNYL 100 MCG/2 ML INJ ONE ×4 (09:35→11:24)
[2017-02-07] MEDS ORDERED: IOPAMIDOL (ISOVUE-370) 150 ML BTL IV ONE ×2 (09:35→10:57)
[2017-02-07] MEDS ORDERED: MIDAZOLAM 2 MG/2 ML VIAL ONE ×3 (09:35→10:33)
[2017-02-07] MEDS ORDERED: BIVALIRUDIN 250 MG/5 ML VIAL IV ONE ×2 (10:14→10:54)
[2017-02-07] MEDS ORDERED: NITROGLYCERIN 1,500 MCG/15 ML VIAL MISC ONE (10:14)
[2017-02-07] MEDS ORDERED: ADENOSINE 90 MG/30 ML VIAL IV ONE (10:22)
[2017-02-07] MEDS ORDERED: PRASUGREL HCL 10 MG TAB ONE (11:25)
[2017-02-07] MEDS ORDERED: ATROPINE SULFATE 1 MG/10 ML SYR IVP PRN (11:49)
[2017-02-07] MEDS ORDERED: PRASUGREL HCL 10 MG TAB PO ONE (11:49)
[2017-02-07] MEDS ORDERED: NITROGLYCERIN 0.4 MG BTL SL PRN (11:49)
[2017-02-07] MEDS ORDERED: NS 1,000 ML IV SCH (12:00)
[2017-02-07] MEDS ORDERED: ATORVASTATIN CALCIUM 40 MG TAB PO SCH (12:00)
--- NOTE | 2017-02-07 12:48 | CPIP ---
[f rep st] INVASIVE CARDIAC PROCEDURE DATE OF PROCEDURE: 02/07/2017 PROCEDURES PERFORMED: 1. Fractional flow reserve measurement in the left anterior descending. 2. Fractional flow reserve measurement in the principal diagonal branch. 3. Percutaneous coronary intervention of the left anterior descending and principal diagonal branch . INDICATIONS FOR PROCEDURE: 1. Angina. 2. Angiographically moderate coronary artery disease on diagnostic catheterization. 3. Abnormal nuclear stress test. PROCEDURE IN DETAIL: Please refer to the diagnostic cardiac cath report by Dr. Philip Javed. Brief ly, the patient is a 57-year-old male who presented to the hospital with chest discomfort. He ruled out for an acute coronary syndrome. A pharmacologic nuclear stress test was abnormal demonstrating a zone of reversible ischemia in the mid anterior wall. Diagnostic cardiac catheterization demonst rated angiographically moderate disease involving the left anterior descending and origin of the reyes ncipal diagonal branch. Additional assessment with fractional flow reserve measurement was edith d. The patient received intravenous Angiomax. A 6-Kyrgyz CLS 3.5 guide catheter was advanced to the le ft main. A flow wire was advanced into the distal portion of the principal diagonal branch. The pa tient received intravenous adenosine per protocol. Fractional flow reserve was abnormal at 0.77. T he flow wire was then redirected into the distal part of the left anterior descending. Intravenous adenosine was once again administered and the fractional flow reserve was marginal at 0.8. Based on these findings, the decision was made to perform percutaneous coronary intervention of the left ant erior descending and principal diagonal branch. The flow wire was removed. A pair of Intuition guide wires were advanced into the distal portions o f the left anterior descending and principal diagonal. Attempts were made to pass a 2.5 x 6 mm cutt ing balloon into the ostium of the diagonal branch. However, the balloon would not cross the lesion . Therefore, a 2.5 x 8 mm Emerge balloon was advanced into the ostium of the principal diagonal and was inflated. Attempts were then made to introduce the cutting balloon into the diagonal branch, b ut it still would not cross the lesion. The diagonal guidewire was removed. A 3.0 x 24 mm Synergy stent was positioned in the mid LAD spanning over the ostium of the principal diagonal branch. The stent was deployed at high pressure. The guidewire was then redirected into the diagonal branch thr ough "stent fci." A 2.75 x 12 mm Emerge balloon was advanced into the ostium of the principal diag onal branch and inflated. Final angiograms demonstrated less than 20% residual stenosis at the osti um of the principal diagonal branch, 0% residual stenosis in the left anterior descending, and GAY- 3 flow in both vessels. COMPLICATIONS: None. CONCLUSION: Successful percutaneous coronary intervention involving placement of a single drug coat ed stent in the mid left anterior descending and balloon angioplasty of the principal diagonal branc h ostium. /[id number]/MODL
[2017-02-07] MEDS: ALPRAZolam 1 MG TAB PO SCH ×3 (13:22→21:23)
[2017-02-07] MEDS: OXcarbazepine 300 MG TAB PO SCH ×2 (13:23→21:20)
[2017-02-07] MEDS: CHOLECALCIFEROL VIT D3 2,000 UNITS TAB/CAP PO SCH (13:26)
[2017-02-07] MEDS: ENOXAPARIN 40 MG/0.4 ML SYR SC SCH (13:27)
[2017-02-07] MEDS: PANTOPRAZOLE SODIUM 40 MG TAB PO SCH ×2 (13:28→21:24)
[2017-02-07] MEDS: PREGABALIN 50 MG CAP PO SCH ×2 (13:50→21:24)
[2017-02-07] MEDS: VENLAFAXINE XR 150 MG CAP PO SCH (13:50)
[2017-02-07] MEDS: predniSONE 5 MG TAB PO SCH (13:50)
--- NOTE | 2017-02-07 14:14 | HOSPPROG ---
Hospitalist Progress Note Assessment/Plan: 57y male with c/o CP. #CP stress test done/ shows anterior & Posterior wall defects s/p heart cath/ stent to LAD and angioplasty patient has family hx of heart disease in both mom and dad trop are negative 12 lead shows sinus rhythm tele shows sinus #HLD statin therapy initiated #CAD s/p stent today appreciate cardiology *HTN: prn hydralazine added #Headache none today #GERD PPI #Anxiety cont home meds stable #SOB c/o of this after the procedure O2 sats stable/suspect there is an element of anxiety #Obesity lifestyle changes reviewed he has put on weight w the prednisone, Lyrica, Remeron going to consider starting pool therapy #Poly rheumatica prednisone #Dispo: tomorrow if stable Subjective: Andrea is feeling short of breath and is worried about his blood pressure. Objective: Vital Signs Temp Pulse Resp BP Pulse Ox 36.3 C 62 14 143/105 H 97 02/07/17 13:12 02/07/17 13:12 02/07/17 13:12 02/07/17 13:13 02/07/17 13:12 Laboratory Results 02/07/17 07:00 02/07/17 07:00 02/06/17 02/07/17 02/08/17 05:59 05:59 05:59 Intake Total 300 Balance 300 PT 12.1 SEC (12.0-15.0) 02/07/17 07:00 INR 0.91 (0.83-1.16) 02/07/17 07:00 - Physical Exam Constitutional: uncomfortable Eyes: PERRL Ears, Nose, Mouth, Throat: hearing normal Cardiovascular: regular rate and rhythym Respiratory: no respiratory distress Gastrointestinal: normoactive bowel sounds Skin: warm, normal color Neurologic: AAOx3 Psychiatric: not encephalopathic, thought process linear, anxious ICD10 Worksheet Patient Problems: Problems Problem Status Onset Chest pain Acute
--- NOTE | 2017-02-07 16:44 | SOAPPROG ---
SOAP Progress Note Assessment/Plan: Assessment: Plan: Subjective: He has continued to have chest pain in the left chest. She has been quite mild. Not had fever chills No cough No lightheadedness or dizziness No nausea vomiting No fatigue Does not feel well. He has not had orthopnea PND or dyspnea on exertion he has not had palpitations He has not had near syncope. Notadache. Objective: Vital Signs Temp Pulse Resp BP Pulse Ox 36.4 C 68 14 109/69 97 02/07/17 16:00 02/07/17 16:00 02/07/17 16:00 02/07/17 16:00 02/07/17 16:00 Laboratory Results 02/07/17 07:00 02/07/17 07:00 02/06/17 02/07/17 02/08/17 05:59 05:59 05:59 Intake Total 300 Balance 300 PT 12.1 SEC (12.0-15.0) 02/07/17 07:00 INR 0.91 (0.83-1.16) 02/07/17 07:00 ICD10 Worksheet Patient Problems: Problems Problem Status Onset Chest pain Acute
--- NOTE | 2017-02-07 16:48 | SOAPPROG ---
AARON Progress Note Assessment/Plan: Assessment: 1. Coronary artery disease 2. Shortness of breath 3. Mental illness 4. Hypertension 5. Dyslipidemia 6. Obesity. This is a big man with big chest pain . Had coronary angiography today was found to have LAD and diagonal disease Dr. Schmidt is fix that. Now his cholesterol is over 340 and his triglycerides were in the 300 range so were going to be really careful with getting him to lose weight exercise and follow up with me very closely. He has good understanding of this and he is willing to cooperate and he is very smart nancy. I am very happy to work hard with him. He has gained about 60 lb and I know that he can lose this he gets on the right track. All his questions have been answered. We will watch him very closely. Plan: 02/07/17 16:48 Objective: Vital Signs Temp Pulse Resp BP Pulse Ox 36.4 C 68 14 109/69 97 02/07/17 16:00 02/07/17 16:00 02/07/17 16:00 02/07/17 16:00 02/07/17 16:00 Laboratory Results 02/07/17 07:00 02/07/17 07:00 02/06/17 02/07/17 02/08/17 05:59 05:59 05:59 Intake Total 300 Balance 300 PT 12.1 SEC (12.0-15.0) 02/07/17 07:00 INR 0.91 (0.83-1.16) 02/07/17 07:00 Physical Exam - Physical Exam General Appearance: alert, no apparent distress Respiratory: lungs clear (The a) Cardiac/Chest: regular rate, rhythm, JVD, systolic murmur Abdomen: normal bowel sounds, No non-tender, No pulsatile mass, No splenomegaly Skin: warm/dry, pallor Extremities: non-tender, No pedal edema, No calf tenderness Neuro/Psych: alert, normal mood/affect ICD10 Worksheet Patient Problems: Problems Problem Status Onset Chest pain Acute
[2017-02-07] MEDS ORDERED: ATORVASTATIN CALCIUM 40 MG TAB PO ONE (17:45)
--- NOTE | 2017-02-07 17:50 | CPIP ---
[f rep st] INVASIVE CARDIAC PROCEDURE PROCEDURE: Coronary angiography, left heart catheterization, left ventriculogram. The patient gave informed consent for this procedure. He understood the risks and the options and wanted to proceed. All his questions were answered. FINDINGS: Left heart catheterization: 1. Left ventricular end-diastolic pressure 12 mmHg. 2. No aortic stenosis. Left ventriculogram: 1. Normal left ventricular systolic function. No regional wall motion abnormalities. 2. No mitral regurgitation. 3. Abnormal left ventricular chamber dimension. CORONARY ANGIOGRAPHY: 1. Left main coronary artery was normal. Left anterior descending artery had a tight stenosis in t he mid section and also involved the takeoff of a very large 1st diagonal branch. 2. Circumflex coronary artery is free of significant disease. 3. Right coronary artery had intimal disease only. It was a very big vessel with excellent flow an d was dominant. RECOMMENDATION: The patient had an abnormal nuclear stress test with some anterior ischemia. He flor s typical angina. He has a calcium score of 1. He has cholesterol of 340. He has a significant fa randal history of premature coronary disease. He is markedly obese. Because all these findings and because of the high-grade obstruction in the LAD and the circumflex, it was recommended that he be reviewed by the interventional service to document the degree of steno sis. In the end the 1st diagonal branch had over an 85% stenosis. The LAD itself had more than 80% steno sis. Intervention was taken care of by Dr. Christian Schmidt. There were no complications. At the end of the study the patient was doing very well. All questions have been answered. /[id number]/MODL
[2017-02-07] MEDS: KETOROLAC 30 MG/1 ML SDV IVP PRN (18:52)
[2017-02-07] MEDS: LOSARTAN POTASSIUM 50 MG TAB PO SCH (21:22)
[2017-02-07] MEDS: risperiDONE 1 MG TAB PO SCH (21:23)
[2017-02-07] MEDS: CYANO/VITAMIN B12 1000 MCG TAB PO SCH (21:24)
[2017-02-07] MEDS: VENLAFAXINE XR 75 MG CAP PO SCH (21:24)
[2017-02-07] MEDS: TEMAZEPAM 15 MG CAP PO PRN (21:28)
[2017-02-07] MEDS: MIRTAZAPINE 30 MG TAB PO SCH (21:28)
[2017-02-07] MEDS: PHENobarbital 30 MG TAB PO SCH (22:50)
[2017-02-08] MEDS: ALPRAZolam 1 MG TAB PO PRN ×2 (04:12→12:29)
[2017-02-08] MEDS: KETOROLAC 30 MG/1 ML SDV IVP PRN (04:16)
[2017-02-08 04:33] LABS: % IMMATURE GRANULYOCYTES 0.1 % (0.0-1.1); ABSOLUTE IMMATURE GRANULOCYTES 0.01 10^3/uL (0.00-0.10); ADD DIFF? NO; ADD MORPH? NO; ADD SCAN? NO; ATYPICAL LYMPHOCYTE FLAG 0 (0-99); FRAGMENT RBC FLAG 0 (0-99); HEMATOCRIT 38.8 % (40.0-51.0); HEMOGLOBIN 12.8 g/dL (13.7-17.5); LEFT SHIFT FLG 40 (0-99); LIPEMIA HEMOLYSIS FLAG 80 (0-99); MEAN CELL HEMOGLOBIN 28.8 pg (27.9-34.1); MEAN CELL VOLUME 87.4 fL (81.5-99.8); MEAN PLATELET VOLUME 10.8 fL (8.7-11.7); PLATELET CLUMPS FLAG 0 (0-99); PLATELET COUNT 152 10^3/uL (150-400); RED BLOOD CELL COUNT 4.44 10^6/uL (4.40-6.38); RED CELL DISTRIBUTION WIDTH 13.8 % (11.5-15.2)
[2017-02-08 04:44] LABS: ALBUMIN 3.5 g/dL (3.5-5.0); ANION GAP 12 mEq/L (8-16); ASPARTATE AMINOTRANSFERASE 18 IU/L (17-59); BILIRUBIN,TOTAL 0.3 mg/dL (0.1-1.4); CALCIUM 9.2 mg/dL (8.5-10.4); CARBON DIOXIDE 22 mEq/l (22-31); CHLORIDE 108 mEq/L (97-110); CREATININE 0.7 mg/dL (0.7-1.3); GLOMERULAR FILTRATION RATE > 60; GLUCOSE 111 mg/dL (70-100); LACTATE DEHYDROGENASE 385 IU/L (313-618); POTASSIUM 4.1 mEq/L (3.5-5.2); SODIUM 142 mEq/L (134-144)
[2017-02-08] MEDS: OXcarbazepine 300 MG TAB PO SCH ×2 (08:54→20:31)
--- NOTE | 2017-02-08 08:54 | CPEKG ---
Heart Rate: 80 RR Interval: 750 P-R Interval: 208 QRSD Interval: 86 QT Interval: 360 QTC Interval: 416 P [place]: 60 QRS [place]: 12 T Wave [place]: 4 EKG Severity - NORMAL ECG - EKG Impression: SINUS RHYTHM Electronically Signed By: Harish Javed 08-Feb-2017 15:11:26
[2017-02-08] MEDS: PREGABALIN 50 MG CAP PO SCH ×2 (08:55→20:32)
[2017-02-08] MEDS: ALPRAZolam 1 MG TAB PO SCH ×3 (08:55→20:33)
[2017-02-08] MEDS: CHOLECALCIFEROL VIT D3 2,000 UNITS TAB/CAP PO SCH (08:55)
[2017-02-08] MEDS: VENLAFAXINE XR 150 MG CAP PO SCH (08:55)
[2017-02-08] MEDS: ATORVASTATIN CALCIUM 40 MG TAB PO SCH (08:55)
[2017-02-08] MEDS: predniSONE 5 MG TAB PO SCH (08:55)
[2017-02-08] MEDS: ASPIRIN EC 325 MG TAB PO SCH (08:55)
[2017-02-08] MEDS: PANTOPRAZOLE SODIUM 40 MG TAB PO SCH ×2 (08:55→20:31)
[2017-02-08] MEDS: PRASUGREL HCL 10 MG TAB PO SCH (08:55)
[2017-02-08] MEDS: ENOXAPARIN 40 MG/0.4 ML SYR SC SCH (08:56)
[2017-02-08] MEDS ORDERED: ACETAMINOPHEN/ASA/CAFFEINE 1 EACH TAB PO ONE (09:00)
--- NOTE | 2017-02-08 09:00 | HOSPPROG ---
Hospitalist Progress Note Assessment/Plan: 57y male with c/o CP. #CP stress test done/ shows anterior & Posterior wall defects s/p heart cath/ stent to LAD and angioplasty patient has family hx of heart disease in both mom and dad trop are negative 12 lead shows sinus rhythm tele shows sinus #HLD statin therapy initiated #CAD s/p stent appreciate cardiology patient will be on Effient for 30 days per cards, may be changed to Plavix *HTN: prn hydralazine added #Headache says he has a migraine and wants Imitrex concerned about him taking this in the setting of recent stent (causes vasoconstriction) #GERD PPI #Anxiety cont home meds stable #SOB c/o of this after the procedure O2 sats stable/suspect there is an element of anxiety #Obesity lifestyle changes reviewed he has put on weight w the prednisone, Lyrica, Remeron going to consider starting pool therapy #Poly rheumatica prednisone #Dispo: today after cardiology sees him Subjective: Andrea is c/o severe headache pain. Objective: Vital Signs Temp Pulse Resp BP Pulse Ox 36.5 C 88 17 155/99 H 95 02/08/17 08:00 02/08/17 08:00 02/08/17 08:00 02/08/17 08:00 02/08/17 08:00 Laboratory Results 02/08/17 03:33 02/08/17 03:33 02/07/17 02/08/17 02/09/17 05:59 05:59 05:59 Intake Total 300 600 Balance 300 600 PT 12.1 SEC (12.0-15.0) 02/07/17 07:00 INR 0.91 (0.83-1.16) 02/07/17 07:00 - Physical Exam Constitutional: uncomfortable, No not in pain Eyes: PERRL Ears, Nose, Mouth, Throat: hearing normal Cardiovascular: regular rate and rhythym Respiratory: no respiratory distress Gastrointestinal: normoactive bowel sounds Skin: warm, normal color Musculoskeletal: no muscle tenderness Neurologic: AAOx3 Psychiatric: anxious ICD10 Worksheet Patient Problems: Problems Problem Status Onset Chest pain Acute
[2017-02-08] MEDS: SUMAtriptan 50 MG TAB PO PRN (11:00)
[2017-02-08] MEDS: HYDROCODONE/APAP 5/325 TAB PO PRN ×2 (14:07→20:34)
[2017-02-08] MEDS: hydrALAZINE 10 MG TAB PO PRN ×2 (14:07→20:32)
--- NOTE | 2017-02-08 16:03 | SOAPPROG ---
AARON Progress Note Assessment/Plan: Assessment: 1. Coronary artery disease 2. Shortness of breath 3. Mental illness 4. Hypertension 5. Dyslipidemia 6. Obesity. Plan: 02/07/17 16:48 02/08/17 16:06 1. Coronary disease 2. Shortness of breath 3. Mental illness 4. Hypertension 5. Dyslipidemia 6. Obesity He is a big man with no chest pain. Has no fever chills or cough He is having no other symptoms he is not lightheaded he has had no complications from this procedure. He has tolerated very well I have started talking to him about prevention cardiac rehab weight loss exercise diet blood pressure blood sugar and low blood lipid management. 2. Start 80 mg of Lipitor we will be checking his cholesterol level in the morning and I will be following him in clinic. All his questions have been answered. This will be very complex challenge to take care of his medical problems and his mental illness at the same time and I look forward to working with him on that I think is very committed he will do a superb job. Subjective: He is not having shortness of breath today His right groin is not bothering him He has no fever chills cough He has no orthopnea PND He has no lightheadedness dizziness He has no trauma to the head neck or chest. He has been quite comfortable in the hospital. He has had a headache. He is taking his medications his groint and not causing a problem. Objective: Vital Signs Temp Pulse Resp BP Pulse Ox 36.6 C 99 24 H 137/101 H 97 02/08/17 12:00 02/08/17 12:00 02/08/17 12:00 02/08/17 12:00 02/08/17 12:00 Laboratory Results 02/08/17 03:33 02/08/17 03:33 02/07/17 02/08/17 02/09/17 05:59 05:59 05:59 Intake Total 300 600 Balance 300 600 PT 12.1 SEC (12.0-15.0) 02/07/17 07:00 INR 0.91 (0.83-1.16) 02/07/17 07:00 Laboratory Tests 02/04/17 02/04/17 02/07/17 12:57 18:50 07:00 Hct INR 0.91 Troponin I < 0.012 < 0.012 Triglycerides Cholesterol LDL Cholesterol, Calc VLDL Cholesterol Non-HDL Cholesterol 02/07/17 02/08/17 07:00 03:33 Hct 38.8 L INR Troponin I Triglycerides 395 H Cholesterol 342 H LDL Cholesterol, Calc 211 H VLDL Cholesterol 79 H Non-HDL Cholesterol 290 H Physical Exam - Physical Exam General Appearance: alert (Subjective exam), no apparent distress Neck: supple Respiratory: rhonchi (Is) Abdomen: non-tender, soft, No organomegaly Skin: warm/dry, No pallor Extremities: normal range of motion, non-tender Neuro/Psych: alert, normal mood/affect ICD10 Worksheet Patient Problems: Problems Problem Status Onset Chest pain Acute
[2017-02-08] MEDS: LOSARTAN POTASSIUM 50 MG TAB PO SCH (20:30)
[2017-02-08] MEDS: risperiDONE 1 MG TAB PO SCH (20:31)
[2017-02-08] MEDS: CYANO/VITAMIN B12 1000 MCG TAB PO SCH (20:32)
[2017-02-08] MEDS: VENLAFAXINE XR 75 MG CAP PO SCH (20:33)
[2017-02-08] MEDS: MIRTAZAPINE 30 MG TAB PO SCH (20:33)
[2017-02-08] MEDS: PHENobarbital 30 MG TAB PO SCH (20:34)
[2017-02-08] MEDS: TEMAZEPAM 15 MG CAP PO PRN (20:34)
[2017-02-09] MEDS: ALPRAZolam 1 MG TAB PO PRN ×2 (04:10→12:13)
[2017-02-09 05:27] LABS: CHOLESTEROL 288 mg/dL (140-220); CHOLESTEROL/HDL RATIO 6.86 RATIO (1.00-4.97); HIGH DENSITY LIPOPROTEIN 42 mg/dL (40-65); NON-HIGH DENSITY LIPOPROTEIN 246 mg/dL (90-129)
[2017-02-09 05:32] LABS: TRIGLYCERIDE 467 mg/dL (40-150)
[2017-02-09] MEDS: PRASUGREL HCL 10 MG TAB PO SCH (08:11)
[2017-02-09] MEDS: OXcarbazepine 300 MG TAB PO SCH (08:12)
[2017-02-09] MEDS: predniSONE 5 MG TAB PO SCH (08:12)
[2017-02-09] MEDS: PANTOPRAZOLE SODIUM 40 MG TAB PO SCH (08:12)
[2017-02-09] MEDS: VENLAFAXINE XR 150 MG CAP PO SCH (08:12)
[2017-02-09] MEDS: ALPRAZolam 1 MG TAB PO SCH (08:12)
[2017-02-09] MEDS: HYDROCODONE/APAP 5/325 TAB PO PRN ×2 (08:12→15:14)
[2017-02-09] MEDS: ASPIRIN EC 325 MG TAB PO SCH (08:13)
[2017-02-09] MEDS: hydrALAZINE 10 MG TAB PO PRN ×2 (08:13→15:14)
[2017-02-09] MEDS: ATORVASTATIN CALCIUM 40 MG TAB PO SCH (08:13)
[2017-02-09] MEDS: PREGABALIN 50 MG CAP PO SCH (08:13)
[2017-02-09] MEDS: CHOLECALCIFEROL VIT D3 2,000 UNITS TAB/CAP PO SCH (08:13)
[2017-02-09] MEDS: ENOXAPARIN 40 MG/0.4 ML SYR SC SCH (11:18)
[2017-02-09 11:21] VITALS: BP 125/84; PULSE 84; RESP 18; TEMP 97.9; O2SAT 94
--- NOTE | 2017-02-09 11:52 | HOSPPROG ---
Hospitalist Progress Note Assessment/Plan: 57y male with c/o CP. #CP stress test done/ shows anterior & Posterior wall defects s/p heart cath/ stent to LAD and angioplasty patient has family hx of heart disease in both mom and dad trop are negative 12 lead shows sinus rhythm tele shows sinus #HLD statin therapy initiated #CAD s/p stent appreciate cardiology patient will be on Effient for 30 days per cards, may be changed to Plavix *HTN: prn hydralazine added #Headache no c/o this today #GERD PPI #Anxiety cont home meds stable #SOB c/o of this after the procedure and today again O2 sats stable/suspect there is an element of anxiety #Obesity lifestyle changes reviewed he has put on weight w the prednisone, Lyrica, Remeron going to consider starting pool therapy #Poly rheumatica prednisone #Dispo: today after cardiology sees him Subjective: Andrea is having some shortness of breath, but says this occurs when he gets anxious. Objective: Vital Signs Temp Pulse Resp BP Pulse Ox 36.6 C 84 18 125/84 H 94 02/09/17 11:20 02/09/17 11:20 02/09/17 11:20 02/09/17 11:20 02/09/17 11:20 Laboratory Results 02/08/17 03:33 02/08/17 03:33 02/08/17 02/09/17 02/10/17 05:59 05:59 05:59 Intake Total 600 1500 Balance 600 1500 PT 12.1 SEC (12.0-15.0) 02/07/17 07:00 INR 0.91 (0.83-1.16) 02/07/17 07:00 - Physical Exam Constitutional: not in pain, obese Eyes: PERRL Ears, Nose, Mouth, Throat: hearing normal Respiratory: no respiratory distress Skin: warm Musculoskeletal: full muscle strength Neurologic: AAOx3 Psychiatric: anxious ICD10 Worksheet Patient Problems: Problems Problem Status Onset Chest pain Acute
--- NOTE | 2017-02-09 13:35 | GDS ---
[f rep st] DISCHARGE SUMMARY DISCHARGE DIAGNOSES: 1. Chest pain. 2. Hyperlipidemia. 3. Coronary artery disease. 4. Hypertension. 5. Headache. 6. Gastroesophageal reflux disease. 7. Anxiety. 8. Recurrent bouts of shortness of breath due to his anxiety. 9. Obesity. 10. Poly rheumatica. CONSULTATIONS: Dr. Philip Javed. Briefly, the patient is a 57-year-old male with a history of fibromyalgia, suspected polymyalgia rhe umatica, depression, and anxiety, who presented with several weeks of intermittent left-sided chest pressure with occasional sharp chest pain. An EKG was performed, which was sinus rhythm. Subsequen tly, he had a myocardial perfusion scan that showed a small reversible mid anterior wall defect, whi ch may reflect some ischemia. He was subsequently seen by Cardiology and had an echocardiogram perf ormed. This showed an EF of 72% with left ventricular wall motion that is normal. He has Doppler e vidence for diastolic dysfunction. On February 07, he underwent a diagnostic catheterization, and at at time, he had a single drug-coated stent placed in the mid LAD and had a balloon angioplasty of th e principal diagonal branch ostium. He was placed on Effient. It was also noted that he had hyperl ipidemia. Will be on Lipitor. He will further follow up with Dr. Philip Javed in the outpatient tting. He has remained in sinus rhythm throughout his stay. HOSPITAL COURSE PER PROBLEM: 1. Chest pain. His troponins were negative. He is status post heart catheterization, a stent to t he LAD, as well as an angioplasty. 2. Hyperlipidemia, statin therapy. 3. Coronary artery disease, status post stent. 4. Hypertension, p.r.n. hydralazine. 5. Headache, resolved. 6. GERD, PPI. 7. Anxiety. Home meds have been continued. 8. Shortness of breath. He has this frequently when he gets anxious. 9. Obesity. Life changes have been reviewed with him. Encouraged him to start pool therapy. 10. Poly rheumatica, on prednisone therapy. He has multiple pending labs. CONDITION ON DISCHARGE: Stable. Blood pressure is 125/84. Heart rate is 84. Respiratory rate is 18. O2 saturation on room air 94%. Temperature is 36.6 Celsius. DISCHARGE MEDICATIONS: Please see the EMR. DISCHARGE INSTRUCTIONS: 1. Further followup with Dr. Philip Javed. 2. If he develops fever, chills, chest pain, or shortness of breath, return to the ER. To remain o n the Effient. This may be changed to Plavix per Cardiology team. Greater than 30 minutes discharging and coordinating care. Copy requested to: Dr. Philip Javed /[id number]/MODL
--- NOTE | 2017-02-09 15:31 | SOAPPROG ---
[facility] Progress Note Assessment/Plan: Assessment: 1. Coronary artery disease 2. Shortness of breath 3. Mental illness 4. Hypertension 5. Dyslipidemia 6. Obesity. Plan: 02/07/17 16:48 02/08/17 16:06 1. Coronary disease 2. Shortness of breath 3. Mental illness 4. Hypertension 5. Dyslipidemia 6. Obesity 02/09/2017 He is not having chest pain He has no shortness of breath He has no nausea vomiting He is taking his medication His cholesterol is coming down some and I am adding Zetia. He is going to start a beta-carina bisoprolol 2.5 mg he is on Arb. He is taking 2 platelet medications. We have talked about exercise diet cardiac rehab. He had some shortness of breath if that persists we can do a chest x-ray but there is nothing to suggest infection. He is going to work very hard on his health. He is planning to go to [place] for a concert. All his questions have been answered. He will call us if he deteriorates in any way. If he is in [place] and he started having chest pain bleeding or any other issues he is going to get 2 911 right away. Going to work hard on losing weight and exercise. He has no other questions. He wants no further testing or other changes at this time. Subjective: He has been noticing some shortness of breath today. He has no chest pain He has no nausea vomiting He has no fever chills He has no cough He is active. He has been walking around holes. His right groin is not painful. He has no bleeding Objective: Vital Signs Temp Pulse Resp BP Pulse Ox 36.6 C 84 18 125/84 H 94 02/09/17 11:20 02/09/17 11:20 02/09/17 11:20 02/09/17 11:20 02/09/17 11:20 Laboratory Results 02/08/17 03:33 02/08/17 03:33 02/08/17 02/09/17 02/10/17 05:59 05:59 05:59 Intake Total 600 1500 Balance 600 1500 PT 12.1 SEC (12.0-15.0) 02/07/17 07:00 INR 0.91 (0.83-1.16) 02/07/17 07:00 Selected Entries 02/09/17 02/09/17 07:21 11:20 Respiratory 16 18 Rate O2 Sat (%) 90 L 94 Temperature (C) 36.5 C 36.6 C Blood Pressure 125/84 H Laboratory Tests 02/07/17 02/07/17 02/08/17 07:00 07:00 03:33 WBC 8.18 Hct 38.8 L Plt Count 152 INR 0.91 Sodium Potassium Chloride Carbon Dioxide Anion Gap Glucose Phosphorus Triglycerides 395 H Cholesterol 342 H Cholesterol Risk Factr 1.6 H 02/08/17 02/09/17 03:33 04:02 WBC Hct Plt Count INR Sodium 142 Potassium 4.1 Chloride 108 Carbon Dioxide 22 Anion Gap 12 Glucose 111 H Phosphorus 4.7 H Triglycerides 467 H Cholesterol 288 H Cholesterol Risk Factr 1.6 H Physical Exam - Physical Exam General Appearance: alert, no apparent distress Neck: full range of motion Cardiac/Chest: systolic murmur, No edema Abdomen: non-tender, soft, No organomegaly Skin: warm/dry Extremities: normal range of motion, No pedal edema, No calf tenderness Neuro/Psych: normal mood/affect ICD10 Worksheet Patient Problems: Problems Problem Status Onset Chest pain Acute
[2017-02-09] MEDS ORDERED: BISOPROLOL FUMARATE 5 MG TAB PO SCH (21:00)
[2017-02-10] MEDS ORDERED: EZETIMIBE 10 MG TAB PO SCH (09:00)
[2017-02-10 13:38] LABS: 2C19S INTERPRETATION See Comments
== END 2017-02-09 15:37 | disposition home or self-care (01) | DRG 247 ==
LOC: F3E 16:40 → OBSVTOIN 02-05 13:41 → F2W 02-07 12:55
PROVIDERS: ADMIT Hospitalist; ATTEND Hospitalist
PROC: 027034Z Dilation of Coronary Artery, One Artery with Drug-eluting Intraluminal Device, Percutaneous Approach (ICD-10-PCS; principal; 2017-02-07)
PROC: B2111ZZ Fluoroscopy of Multiple Coronary Arteries using Low Osmolar Contrast (ICD-10-PCS; 2017-02-07)
PROC: B2151ZZ Fluoroscopy of Left Heart using Low Osmolar Contrast (ICD-10-PCS; 2017-02-07)
PROC: 4A023N7 Measurement of Cardiac Sampling and Pressure, Left Heart, Percutaneous Approach (ICD-10-PCS; 2017-02-07)
DX: I25.119 Atherosclerotic heart disease of native coronary artery with unspecified angina pectoris (principal); E78.5 Hyperlipidemia, unspecified; I10 Essential (primary) hypertension; R51 Headache; K21.9 Gastro-esophageal reflux disease without esophagitis; F41.8 Other specified anxiety disorders; E66.9 Obesity, unspecified; M35.3 Polymyalgia rheumatica; M79.7 Fibromyalgia
CPT/HCPCS: 81225-90; 96374; A9500; C1725; C1760; C1769; C1874; C1887; C9600; G0378; J0153; J0583; J1200; J1644; J1650; J1885; J2250; J2550; J2785; J3010; Q9967

== ENCOUNTER 2017-02-18 12:56 | Observation (INO) | payer BC ==
--- NOTE | 2017-02-18 13:14 | EDPHY ---
H & P HPI/ROS: CHIEF COMPLAINT: Shortness of breath, chest pain, recent stent HISTORY OF PRESENT ILLNESS: This patient is a 57 year old male complaining of chest pressure and pain over the last couple days. He underwent cardiac catheterization with stenting of LAD and balloon angioplasty of diagonal on 02/07/17 following cardiac workup here for similar symptoms. He was discharged 02/09/17, nine days ago. He endorses occasional right groin pain he feels is likely associated with his catheterization. When he left, he noted some shortness of breath and a sensation of "gasping for air". 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 Javed, and states he was told to return to the emergency department if he developed increased chest pain or pressure. He has noted a constant pressure since that time. Today and over the last few days, he has noted intermittent sharp chest pains, each lasting around 30 seconds. He states he can "feel his heart pumping", and endorses associated intermittent pain in his upper left back. This pain feels different from pain he has experienced in the past. He is scheduled to follow up with Dr. Javed on Monday, but decided this morning to present for evaluation at the emergency department instead due to continued pain and pressure, and a sensation of heaviness in his left arm. He feels his symptoms are very similar to his initial presentation on 02/04/17. He denies fever, cough, recent illness, or other associated symptoms. He has history of HTN, hyperlipidemia, anxiety and depression. Family history is positive for early CAD. Of note, the patient has obstructive sleep apnea and generally wears a CPAP at night. He did not wear this during his hospital admission. Since discharge, he has noted an increase in his apneic events - prior to admission, he would have 1 -2 events per hour, and in the past week he has been having 15-17 per hour. He states he has woken up several times each night gasping for air. REVIEW OF SYSTEMS: A ten point review of systems was performed and is negative with the exception of the items mentioned in the HPI. - Medical/Surgical History PMH: 1. CAD--LAD Stent placement and balloon angioplasty of diagonal on 02/07/17 2. Peripheral neuropathy 3. Polymyalgia rheumatica 4. Fibromyalgia 5. Anxiety and depression 6. Hypertension 7. Hyperlipidemia 8. Migraine headaches Hx Asthma: No Hx Chronic Respiratory Disease: No Hx Diabetes: No Hx Cardiac Disease: Yes Hx Renal Disease: No Hx Cirrhosis: No Hx Alcoholism: No Hx HIV/AIDS: No Hx Splenectomy or Spleen Trauma: No - Social History Smoking Status: Never smoked Additional Social History: Lives up [facility] by himself with his bull darlene. Former marijuana smoker, quit over one year ago. No tobacco product use. No alcohol use for over a year. - Physical Exam Exam: General Appearance: Alert. Vital signs reviewed. BP 118/82. Eyes: Pupils equal and round, no conjunctival injection, no discharge. Anicteric. ENT, Mouth: Mucous membranes are moist, no oropharyngeal erythema or edema. Neck: No lymphadenopathy, supple. No JVD. Respiratory: Lungs are clear to auscultation; no wheezes, rales, or rhonchi. Cardiovascular: Regular rate and rhythm; no murmur, rub, or gallop. Gastrointestinal: Abdomen is soft and nontender, no masses or organomegaly, bowel sounds normal. Skin: Multiple bruises to left arm, bruise right lower abdomen. Warm and dry, no rashes on exposed skin, normal color. Back: Nontender to palpation over the thoracolumbar spine. No CVAT. Extremities: Palpable presumed small hematoma in right femoral area. No lower extremity edema or calf tenderness. Pulses:2+ femoral pulses. 1+ bilateral dorsalis pedis pulses. Neurological: Alert and oriented. Moving all four extremities easily and equally. Psychiatric: Normal affect. Constitutional: Initial Vital Signs Temperature (C) 36.5 C 02/18/17 13:16 Heart Rate 65 02/18/17 13:16 Respiratory Rate 16 02/18/17 13:16 Blood Pressure 118/82 H 02/18/17 13:16 O2 Sat (%) 98 02/18/17 13:16 O2 Delivery Mode Room Air Allergies/Adverse Reactions: No Known Allergies Allergy (Verified 02/18/17 13:16) Home Medications: Medication Instructions Recorded Oxcarbazepine [Trileptal] 600 mg PO BID 02/02/16 ALPRAZolam [Alprazolam Xr] 3 mg PO DAILY@0900 02/04/17 ALPRAZolam [Xanax Xr] 2 mg PO DAILY@2100 02/04/17 Butal/Asp/Caffeine-Fiorinal 1 each PO BID 02/04/17 [Fiorinal 50-325-40 mg Cap] Cholecalciferol Vit D3 [Vitamin D3 2,000 units PO DAILY@89902/04/17 (*)] Cyanocobalamin [Vitamin B12 (*)] 2,000 mcg PO DAILY@209902/04/17 Esomeprazole Mag Trihydrate 40 mg PO BID 02/04/17 [Nexium] Herbals/Supplements -Info Only 1 each IM Q30D 02/04/17 Losartan Potassium [Cozaar 50 mg 50 mg PO DAILY@209902/04/17 (*)] Mirtazapine [Remeron] 30 mg PO DAILY@209902/04/17 Oxcarbazepine [Trileptal] 150 mg PO BID 02/04/17 PHENobarbital [PHENobarbital 30mg 7.5 mg PO DAILY@209902/04/17 (*)] Sumatriptan Succinate [Imitrex] 100 mg PO ONCE PRN MDD 200 MG 02/04/17 Venlafaxine Xr [Effexor Xr 75MG 75 mg PO DAILY@209902/04/17 (*)] Venlafaxine Xr [Effexor Xr] 150 mg PO DAILY@89902/04/17 risperiDONE [Risperdal 1mg (*)] 1 mg PO DAILY@209902/04/17 Atorvastatin Calcium [Lipitor 40 80 mg PO DAILY #60 tab 02/09/17 mg (*)] Bisoprolol Fumarate [Zebeta (*)] 2.5 mg PO HS #30 tab 02/09/17 Prasugrel HCl [Effient 10mg (*)] 10 mg PO DAILY #30 tab 02/09/17 Aspirin EC [Aspirin EC 325 mg (*)] 325 mg PO HS 02/18/17 Pregabalin [Lyrica] 25 mg PO BID 02/18/17 predniSONE 2 mg PO DAILY 02/18/17 Medical Decision Making - Diagnostics EKG Interpretation: The 12 lead EKG was interpreted by myself. See hard copy and/or "tracemaster" electronic copy for interpretation. Imaging: I viewed and interpreted images myself ED Course/Re-evaluation: 57 year old male presents with shortness of breath (mostly at night, not pleuritic), chest pressure, and intermittent sharp chest pains in the setting of recent stent placement. He has been compliant with home medications, including Effient. EKG shows no acute ischemic changes. Plan for chest x-ray, labs including CBC, BMP, troponin. CXR without acute pulmonary disease. First troponin negative. 14:[address] Stevens, [employer] helicopter pilot. He recommends admission for this patient and reevaluation in the morning for possible recatheterization. 14:52 Spoke with [address]ist service. Dr. Chance accepts admission for chest pain. Differential Diagnosis: I considered a ddx that includes but is not limited to occlusion of recent stent , ACS, pneumonia or other infectious process, pericarditis, PE, GERD, anxiety. - Data Points Laboratory Results: Laboratory Results 02/18/17 13:10 02/18/17 13:10 Medications Given: Discontinued Medications Ketorolac Tromethamine (Toradol) 30 mg IVP ONCE ONE Stop: 02/18/17 17:48 Last Admin: 02/18/17 17:56 Dose: 30 mg Departure - Departure Disposition: [facility] Acute Clinical Impression: Anxiety Chest pain Qualifiers: Chest pain type: unspecified Qualified Code(s): R07.9 - Chest pain, unspecified Condition: Good Report Scribed for: Radha Mak Report Scribed by: Berta Gonzalez Date of Report: 02/18/17 Time of Report: 13:35 Physician Review and Approval Statement: 02/18/17 13:13 Portions of this note were transcribed by the medical laboratory technical officer. I, Dr. Radha Mak, personally performed the history, physical exam, and medical decision- making; and confirmed the accuracy of the information in the transcribed note.
--- NOTE | 2017-02-18 13:23 | CPEKG ---
Heart Rate: 62 RR Interval: 968 P-R Interval: 220 QRSD Interval: 92 QT Interval: 396 QTC Interval: 402 P [place]: 39 QRS [place]: 4 T Wave [place]: 5 EKG Severity - ABNORMAL ECG - EKG Impression: SINUS RHYTHM EKG Impression: FIRST DEGREE AV BLOCK EKG Impression: BORDERLINE T ABNORMALITIES, INFERIOR LEADS Electronically Signed By: Radha Mak 18-Feb-2017 18:03:20
[2017-02-18 13:53] LABS: % IMMATURE GRANULYOCYTES 0.4 % (0.0-1.1); ABSOLUTE IMMATURE GRANULOCYTES 0.03 10^3/uL (0.00-0.10); ADD DIFF? NO; ADD MORPH? NO; ADD SCAN? NO; ATYPICAL LYMPHOCYTE FLAG 10 (0-99); FRAGMENT RBC FLAG 0 (0-99); HEMATOCRIT 39.9 % (40.0-51.0); HEMOGLOBIN 13.3 g/dL (13.7-17.5); LEFT SHIFT FLG 0 (0-99); LIPEMIA HEMOLYSIS FLAG 80 (0-99); MEAN CELL HEMOGLOBIN 28.6 pg (27.9-34.1); MEAN CELL HEMOGLOBIN CONCENTR. 33.3 g/dL (32.4-36.7); MEAN CELL VOLUME 85.8 fL (81.5-99.8); MEAN PLATELET VOLUME 11.5 fL (8.7-11.7); PLATELET CLUMPS FLAG 10 (0-99); PLATELET COUNT 200 10^3/uL (150-400); RED BLOOD CELL COUNT 4.65 10^6/uL (4.40-6.38)
[2017-02-18 14:08] LABS: ANION GAP 15 mEq/L (8-16); CALCIUM 9.4 mg/dL (8.5-10.4); CARBON DIOXIDE 21 mEq/l (22-31); CHLORIDE 103 mEq/L (97-110); CREATININE 0.8 mg/dL (0.7-1.3); GLOMERULAR FILTRATION RATE > 60; GLUCOSE 115 mg/dL (70-100); POTASSIUM 3.9 mEq/L (3.5-5.2); SODIUM 139 mEq/L (134-144)
[2017-02-18 14:19] LABS: TROPONIN I < 0.012 ng/mL (0-0.034)
[2017-02-18] MEDS ORDERED: ONDANSETRON 4 MG/2 ML VIAL IVP PRN (16:26)
[2017-02-18] MEDS ORDERED: LORazepam 0.5 MG TAB PO PRN (16:26)
[2017-02-18] MEDS ORDERED: LORazepam 2 MG/ML INJ IVP PRN (16:26)
[2017-02-18] MEDS ORDERED: ACETAMINOPHEN 325 MG TAB PO PRN (16:26)
[2017-02-18] MEDS ORDERED: ONDANSETRON DISINTEGRATING 4 MG TAB PO PRN (16:26)
[2017-02-18] MEDS ORDERED: HYDROmorphONE/DILAUDID 1 MG/ML SYR IVP PRN (16:26)
[2017-02-18] MEDS ORDERED: NON-FORMULARY NEW DRUG (Sumatriptan Succinate [Imitrex] 100 MG) PO PRN (16:36)
[2017-02-18] MEDS ORDERED: SUMAtriptan 50 MG TAB PO PRN (17:11)
[2017-02-18] MEDS: PROMETHAZINE HCL 25 MG/ML INJ IVP PRN ×2 (17:43→23:56)
[2017-02-18] MEDS ORDERED: LORazepam 1 MG TAB PO PRN (17:45)
[2017-02-18] MEDS ORDERED: KETOROLAC 30 MG/1 ML SDV IVP ONE (17:47)
[2017-02-18] MEDS ORDERED: IOPAMIDOL (ISOVUE 370) 100 ML BTL IV ONE (17:53)
[2017-02-18] MEDS: KETOROLAC 15 MG/1 ML SDV IVP SCH ×2 (17:57→23:59)
--- NOTE | 2017-02-18 18:25 | PDGENHP ---
History and Physical - Chief Complaint chest pain - History of Present Illness 57 yo M with PMH of CAD sp stent to the LAD placed on 02/09/17 as well as severe anxiety and depression presenting with recurrent chest pain. Patient notes that he has two different types of chest pain--one he describes as chest pressure that was present before his stent was placed and has been present intermittently since then as well. He notes that over the last three days that chest pressure seemed to get worse when it had been getting better initially. It is located over his left anterior chest with some radiation to his left arm. It is not associated with activity or any other factor that he can tell. It is not severe, it has been happening several times per day over the last 3 days. He has also developed a new chest pain that is substernal and sharp/stabbing type pain. It comes and goes without any clear pattern and generally lasts only about 30 seconds or so. This has been present for only about the last 3 days and has happened at least 1-2 times per day since it started. He has also had increasing issues with shortness of breath. He notes this has started since the stent was placed. He intermittently feels as if he must gasp for air and as if he is not getting enough air in. He has also had more issues with his cpap machine reporting increasing numbers of "episodes" at night, even though this had been stable for over a year and a half prior to stent being placed. He has not had increased swelling in his feet/legs, he has not had fever or chills. He does have some bruising in his groin near the site of the catheterization and a small knot that has not changed. History Information - Allergies/Home Medication List Allergies/Adverse Reactions: No Known Allergies Allergy (Verified 02/18/17 13:16) Home Medications: Oxcarbazepine [Trileptal] 600 mg PO BID 02/02/16 [Last Taken 02/18/17] ALPRAZolam [Alprazolam Xr] 3 mg PO DAILY@0900 02/04/17 [Last Taken 02/18/17] ALPRAZolam [Xanax Xr] 2 mg PO DAILY@2100 02/04/17 [Last Taken 02/18/17] Butal/Asp/Caffeine-Fiorinal [Fiorinal 50-325-40 mg Cap] 1 each PO BID 02/04/17 [ Last Taken 02/04/17 09:00] Cholecalciferol Vit D3 [Vitamin D3 (*)] 2,000 units PO DAILY@89902/04/17 [ Last Taken 02/18/17] Cyanocobalamin [Vitamin B12 (*)] 2,000 mcg PO DAILY@209902/04/17 [Last Taken ] Esomeprazole Mag Trihydrate [Nexium] 40 mg PO BID 02/04/17 [Last Taken 02/18/17] Herbals/Supplements -Info Only 1 each IM Q30D 02/04/17 [Last Taken 02/18/17] Losartan Potassium [Cozaar 50 mg (*)] 50 mg PO DAILY@209902/04/17 [Last Taken 02/18/17] Mirtazapine [Remeron] 30 mg PO DAILY@209902/04/17 [Last Taken 02/18/17] Oxcarbazepine [Trileptal] 150 mg PO BID 02/04/17 [Last Taken 02/18/17] PHENobarbital [PHENobarbital 30mg (*)] 7.5 mg PO DAILY@209902/04/17 [Last Taken 02/18/17] Sumatriptan Succinate [Imitrex] 100 mg PO ONCE PRN MDD 200 MG 02/04/17 [Last Taken 02/18/17] Venlafaxine Xr [Effexor Xr 75MG (*)] 75 mg PO DAILY@209902/04/17 [Last Taken ] Venlafaxine Xr [Effexor Xr] 150 mg PO DAILY@89902/04/17 [Last Taken 02/18/17] risperiDONE [Risperdal 1mg (*)] 1 mg PO DAILY@209902/04/17 [Last Taken 02/18/17 ] Aspirin EC [Aspirin EC 325 mg (*)] 325 mg PO HS 02/18/17 [Last Taken 02/17/17] Pregabalin [Lyrica] 25 mg PO BID 02/18/17 [Last Taken 02/18/17] predniSONE 2 mg PO DAILY 02/18/17 [Last Taken 02/18/17] I have personally reviewed and updated: family history, medical history, social history, surgical history - Past Medical History coronary artery disease (s/p stent to LAD 02/07/17), fibromyalgia, hypertension, hyperlipidemia, migraines, psychiatric history (severe anxiety and depression) Additional medical history: JAYDA on CPAP. peripheral neuropathy. Possible polymyalgia rheumatica--chronic prednisone being weaned off. 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 Review of Systems ROS: 10pt was reviewed & negative except for what was stated in HPI & below Physical Exam Temp Pulse Resp BP Pulse Ox 36.4 C 56 L 16 157/99 H 93 02/18/17 16:19 02/18/17 16:19 02/18/17 16:19 02/18/17 16:19 02/18/17 16:19 Constitutional: no apparent distress, appears nourished, obese Eyes: PERRL, anicteric sclera Ears, Nose, Mouth, Throat: moist mucous membranes, hearing normal Cardiovascular: regular rate and rhythym, no murmur, rub, or gallop, No edema Respiratory: no respiratory distress, no rales or rhonchi, clear to auscultation Gastrointestinal: normoactive bowel sounds, soft, non-tender abdomen Genitourinary: no bladder tenderness Skin: warm, normal color Musculoskeletal: full muscle strength, no muscle tenderness Neurologic: AAOx3 Psychiatric: interacting appropriately, not encephalopathic, anxious Lab Data & Imaging Review 02/18/17 13:10 02/18/17 13:10 WBC 7.73 10^3/uL (3.80-9.50) 02/18/17 13:10 RBC 4.65 10^6/uL (4.40-6.38) 02/18/17 13:10 Hgb 13.3 g/dL (13.7-17.5) L 02/18/17 13:10 Hct 39.9 % (40.0-51.0) L 02/18/17 13:10 MCV 85.8 fL (81.5-99.8) 02/18/17 13:10 MCH 28.6 pg (27.9-34.1) 02/18/17 13:10 MCHC 33.3 g/dL (32.4-36.7) 02/18/17 13:10 RDW 14.0 % (11.5-15.2) 02/18/17 13:10 Plt Count 200 10^3/uL (150-400) 02/18/17 13:10 MPV 11.5 fL (8.7-11.7) 02/18/17 13:10 Neut % (Auto) 65.7 % (39.3-74.2) 02/18/17 13:10 Lymph % (Auto) 25.0 % (15.0-45.0) 02/18/17 13:10 Sumner % (Auto) 6.3 % (4.5-13.0) 02/18/17 13:10 Eos % (Auto) 2.1 % (0.6-7.6) 02/18/17 13:10 Baso % (Auto) 0.5 % (0.3-1.7) 02/18/17 13:10 Nucleat RBC Rel Count 0.0 % (0.0-0.2) 02/18/17 13:10 Absolute Neuts (auto) 5.08 10^3/uL (1.70-6.50) 02/18/17 13:10 Absolute Lymphs (auto) 1.93 10^3/uL (1.00-3.00) 02/18/17 13:10 Absolute Monos (auto) 0.49 10^3/uL (0.30-0.80) 02/18/17 13:10 Absolute Eos (auto) 0.16 10^3/uL (0.03-0.40) 02/18/17 13:10 Absolute Basos (auto) 0.04 10^3/uL (0.02-0.10) 02/18/17 13:10 Absolute Nucleated RBC 0.00 10^3/uL (0-0.01) 02/18/17 13:10 Immature Gran % 0.4 % (0.0-1.1) 02/18/17 13:10 Immature Gran # 0.03 10^3/uL (0.00-0.10) 02/18/17 13:10 Sodium 139 mEq/L (134-144) 02/18/17 13:10 Potassium 3.9 mEq/L (3.5-5.2) 02/18/17 13:10 Chloride 103 mEq/L (97-110) 02/18/17 13:10 Carbon Dioxide 21 mEq/l (22-31) L 02/18/17 13:10 Anion Gap 15 mEq/L (8-16) 02/18/17 13:10 BUN 15 mg/dL (7-23) 02/18/17 13:10 Creatinine 0.8 mg/dL (0.7-1.3) 02/18/17 13:10 Estimated GFR > 60 02/18/17 13:10 Glucose 115 mg/dL (70-100) H 02/18/17 13:10 Calcium 9.4 mg/dL (8.5-10.4) 02/18/17 13:10 Troponin I < 0.012 ng/mL (0-0.034) 02/18/17 13:10 Visualized and Interpreted Chest x-ray results: Yes Chest X-Ray results: normal Visualized and Interpreted EKG results: Yes EKG Interpretation: Positive for: normal sinsus rhythm EKG additional interpertation: borderline t inferior Assessment & Plan Assessment: 57 yo M with PMH of CAD s/p recent stent to LAD admitted with chest pain and sob # chest pain and sob: initial w/u reassuring but concerning that patient has recurrent sxs similar to the chest "pressure" he had prior to stent placement 2 weeks ago. Plan is for monitoring on tele, obtaining serial trops and ecg. Cardiology has been consulted and suspect they may want to repeat heart catheterization in am for further evaluation so will keep NPO p/MN. Will obtain CTA today to r/u PE given associated sob as well. # CAD: as above with recent stent to LAD and balloon angiography to principle diagonal. Has been compliant with medication since discharge including asa, effient, atorvastatin and bisoprolol. Does have RF including HLD, HTN and family hx. # sob: patient having increased episodes of hypoxia at night per his report and continued sob since stent placement. He also has report of pulmonary nodules that are due for further evaluation with chest ct. Will get CTA while in house to both r/o PE as underlying etiology for his continued chest pain and to further evaluate pulmonary nodules. # jayda: on cpap at home # migraine: patient with chronic headache that largely involved his eyes and temporal region, in the setting of possible diagnosis of PMH will obtain ESR as concern for temporal arteritis present. He has been seen by neurology and notes that he has been weaning himself off of fioricet and fioronal which he has been on for a long time. # anxiety/depression: anxiety triggered by hospitalization and possible need for repeat intervention but all in all patient is managing relatively well. He is on alprazolam xr at home which is not available here, so will change to schedule xanax with prn available for breakthrough anxiety. # pre diabetes: last a1c of 6.3. Patient notes he has been working on his diet since then and has lost some weight. Will recheck. # HLD: continue statin # obesity: in part driven by psych meds, will ask for dietary consult as patient quite motivated to lose weight Observation status Patient new to my care. Old records reviewed and summarized as above. Care plan reviewed with ER doctor. > 100 minutes spent in care of this patient, 4pm to 545pm spent in direct face to face counseling of patient regarding his multiple health concerns and anxiety around hospitalization.
[2017-02-18 18:52] LABS: HEMATOCRIT 37.2 % (40.0-51.0)
[2017-02-18 20:23] LABS: COLOR YELLOW; LEUKOCYTE ESTERASE,URINE NEGATIVE (NEGATIVE); NITRITE,URINE NEGATIVE (NEGATIVE)
[2017-02-18] MEDS: PREGABALIN 25 MG CAP PO SCH (20:56)
[2017-02-18] MEDS: MIRTAZAPINE 30 MG TAB PO SCH (20:57)
[2017-02-18] MEDS: ASPIRIN EC 325 MG TAB PO SCH (20:57)
[2017-02-18] MEDS: oxyCODONE IR 5 MG TAB PO PRN (20:57)
[2017-02-18] MEDS: PANTOPRAZOLE SODIUM 40 MG TAB PO SCH (20:57)
[2017-02-18] MEDS: VENLAFAXINE XR 75 MG CAP PO SCH (20:57)
[2017-02-18] MEDS: CYANO/VITAMIN B12 1000 MCG TAB PO SCH (20:57)
[2017-02-18] MEDS: ALPRAZolam 1 MG TAB PO SCH (20:57)
[2017-02-18] MEDS: OXcarbazepine 300 MG TAB PO SCH (20:58)
[2017-02-18] MEDS: risperiDONE 1 MG TAB PO SCH (20:59)
[2017-02-18] MEDS: LOSARTAN POTASSIUM 50 MG TAB PO SCH (20:59)
[2017-02-18] MEDS: BISOPROLOL FUMARATE 5 MG TAB PO SCH (21:00)
[2017-02-18] MEDS ORDERED: ALPRAZOLAM 2 MG PO SCH (21:00)
[2017-02-18] MEDS ORDERED: OXCARBAZEPINE 600 MG PO SCH (21:00)
[2017-02-18] MEDS ORDERED: NON-FORMULARY NEW DRUG (Esomeprazole Mag Trihydrate [Nexium] 40 MG) PO SCH (21:00)
[2017-02-18] MEDS ORDERED: OXcarbazepine 300 MG TAB PO SCH (21:00)
[2017-02-18] MEDS ORDERED: NON-FORMULARY NEW DRUG (Oxcarbazepine [Trileptal] 150 MG) PO SCH (21:00)
[2017-02-18] MEDS: PHENobarbital 30 MG TAB PO SCH (21:05)
[2017-02-18] MEDS: ZOLPIDEM TARTRATE 5 MG TAB PO PRN (21:10)
[2017-02-18] MEDS: BUTAL/ASP/CAFFEINE-FIORINAL 1 EACH CAP PO SCH (21:11)
[2017-02-18] MEDS ORDERED: LORazepam 1 MG TAB PO SCH (22:00)
[2017-02-19] MEDS: oxyCODONE IR 5 MG TAB PO PRN ×2 (04:11→15:09)
[2017-02-19] MEDS: ALPRAZolam 1 MG TAB PO PRN ×3 (04:11→20:19)
[2017-02-19 04:32] LABS: % IMMATURE GRANULYOCYTES 0.4 % (0.0-1.1); ABSOLUTE IMMATURE GRANULOCYTES 0.03 10^3/uL (0.00-0.10); ADD DIFF? NO; ADD MORPH? NO; ADD SCAN? NO; ATYPICAL LYMPHOCYTE FLAG 0 (0-99); FRAGMENT RBC FLAG 0 (0-99); HEMATOCRIT 38.5 % (40.0-51.0); HEMOGLOBIN 12.9 g/dL (13.7-17.5); LEFT SHIFT FLG 0 (0-99); LIPEMIA HEMOLYSIS FLAG 80 (0-99); MEAN CELL HEMOGLOBIN 28.7 pg (27.9-34.1); MEAN CELL HEMOGLOBIN CONCENTR. 33.5 g/dL (32.4-36.7); MEAN CELL VOLUME 85.7 fL (81.5-99.8); MEAN PLATELET VOLUME 11.2 fL (8.7-11.7); PLATELET CLUMPS FLAG 10 (0-99); PLATELET COUNT 177 10^3/uL (150-400); RED BLOOD CELL COUNT 4.49 10^6/uL (4.40-6.38); RED CELL DISTRIBUTION WIDTH 13.7 % (11.5-15.2)
[2017-02-19 05:16] LABS: ANION GAP 9 mEq/L (8-16); CALCIUM 9.4 mg/dL (8.5-10.4); CARBON DIOXIDE 23 mEq/l (22-31); CHLORIDE 104 mEq/L (97-110); CREATININE 0.8 mg/dL (0.7-1.3); GLOMERULAR FILTRATION RATE > 60; GLUCOSE 91 mg/dL (70-100); POTASSIUM 4.3 mEq/L (3.5-5.2); SODIUM 136 mEq/L (134-144)
--- NOTE | 2017-02-19 05:30 | CPEKG ---
Heart Rate: 54 RR Interval: 1111 P-R Interval: 240 QRSD Interval: 90 QT Interval: 432 QTC Interval: 410 P [place]: 42 QRS [place]: 9 T Wave [place]: 3 EKG Severity - ABNORMAL ECG - EKG Impression: SINUS RHYTHM EKG Impression: FIRST DEGREE AV BLOCK EKG Impression: CONSIDER ANTEROSEPTAL INFARCT Electronically Signed By: Phoenix Stevens 19-Feb-2017 06:43:14
[2017-02-19] MEDS: KETOROLAC 15 MG/1 ML SDV IVP SCH ×3 (06:09→17:56)
[2017-02-19] MEDS: PROMETHAZINE HCL 25 MG/ML INJ IVP PRN ×3 (06:11→18:04)
[2017-02-19] MEDS ORDERED: DOCUSATE SODIUM 100 MG CAP PO PRN (06:59)
[2017-02-19] MEDS: ATORVASTATIN CALCIUM 40 MG TAB PO SCH (08:55)
[2017-02-19] MEDS: PREGABALIN 25 MG CAP PO SCH ×2 (08:55→20:08)
[2017-02-19] MEDS: ALPRAZolam 1 MG TAB PO SCH ×3 (08:55→23:43)
[2017-02-19] MEDS: predniSONE 1 MG TAB PO SCH (08:55)
[2017-02-19] MEDS: PANTOPRAZOLE SODIUM 40 MG TAB PO SCH ×2 (08:56→20:06)
[2017-02-19] MEDS: VENLAFAXINE XR 150 MG CAP PO SCH (08:56)
[2017-02-19] MEDS: BUTAL/ASP/CAFFEINE-FIORINAL 1 EACH CAP PO SCH ×2 (08:56→20:11)
[2017-02-19] MEDS: OXcarbazepine 300 MG TAB PO SCH ×2 (08:56→20:11)
[2017-02-19] MEDS: CHOLECALCIFEROL VIT D3 1,000 UNITS TAB PO SCH (08:56)
[2017-02-19] MEDS ORDERED: ALPRAZOLAM 3 MG PO SCH (09:00)
[2017-02-19] MEDS: PRASUGREL HCL 10 MG TAB PO SCH (11:52)
[2017-02-19] MEDS ORDERED: LIDOCAINE 1% 300 MG/30 ML SDV ONE (13:51)
[2017-02-19] MEDS ORDERED: IOPAMIDOL (ISOVUE-370) 150 ML BTL IV ONE (13:52)
[2017-02-19] MEDS ORDERED: MIDAZOLAM 2 MG/2 ML VIAL ONE (13:52)
[2017-02-19] MEDS ORDERED: fentaNYL 100 MCG/2 ML INJ ONE (13:52)
[2017-02-19] MEDS ORDERED: oxyCODONE IR 5 MG TAB ONE (15:08)
--- NOTE | 2017-02-19 15:31 | GCON ---
[f rep st] CONSULTATION DATE OF CONSULTATION: 02/19/2017 CHIEF COMPLAINT: We have been asked by Dr. Chance to evaluate the patient with a chief complaint of chest pain. HISTORY OF PRESENT ILLNESS: The patient is a 57-year-old gentleman with known coronary artery disea se who presents with a chief complaint of chest pain. The patient was in his usual state of health until several weeks prior to admission, when he began to experience chest pain. Chest pain was desc ribed as a pressure located over the left side of his chest extending into his left arm. The chest pain was not associated with nausea, vomiting, or diaphoresis. There are no obvious precipitating o r relieving factors. On 02/04/2017, he presented to the emergency department for further evaluation . His initial EKG demonstrated no acute ST or T-wave changes. His initial troponin was within normal limits. The patient underwent nuclear stress testing for risk stratification. Nuclear stress testi ng was notable for a small anterolateral perfusion defect consistent with ischemia. He went to the cardiac catheterization laboratory where he was found to have intermediate grade disease involving t he mid left anterior descending coronary artery and 2nd diagonal coronary artery. FFR was performed indicating flow limitation in both vessels and patient was treated with percutaneous coronary inter vention. He had a stent placed in his left anterior descending coronary artery and balloon angiopla sty of the diagonal artery. Post procedure, the patient has continued to notice intermittent episod es of chest discomfort which has prompted him to present to the emergency department for further ria luation. The patient did note a slight improvement in his shortness of breath with the stent placem ent, but did not necessarily notice an improvement in his chest discomfort. The patient has been ta gina all of his medications. His initial EKG on re-presented demonstrated no acute ST or T-wave changes. His troponins have been within normal limits. The patient is currently pain-free at this time. PAST MEDICAL HISTORY: 1. Coronary artery disease, status post stenting of his left anterior descending coronary artery in January of 2017. 2. Hyperlipidemia. 3. Major depressive disorder. 4. Anxiety. 5. Fibromyalgia. 6. Possible polymyalgia rheumatica. 7. Peripheral neuropathy. 8. Obesity. MEDICATIONS: Please see medicine reconciliation form. ALLERGIES: No known drug allergies. [place] H[place] He does not smoke tobacco. He denies problems with alcohol. FAMILY HISTORY: Notable for coronary artery disease. REVIEW OF SYSTEMS: A 10-point review of systems is negative, except as noted in HPI. PHYSICAL EXAMINATION: GENERAL: Patient is resting comfortably in bed. He does not appear to be in acute distress at this time. VITAL SIGNS: Temperature is afebrile. Pulse is 53, blood pressure 1 21/76, respiratory rate 15, SaO2 94% on 2 L nasal cannula. HEENT: Normocephalic, atraumatic. Extr aocular muscles intact. NECK: No JVD. No bruits. LUNGS: Clear to auscultation bilaterally. CAR DIOVASCULAR: Regular rate and rhythm, S1, S2. No murmurs, rubs, or gallops appreciated. ABDOMEN: Obese, nontender. Normoactive bowel sounds. No hepatosplenomegaly noted. Could not palpate aorta . SKIN: Patient does have ecchymosis at the right inguinal access site. NEURO: Patient is awake, alert, and oriented x3. LABORATORY: White blood cell count 7.91, hemoglobin 12.9, hematocrit 38.5, platelet count 177. Sodium 136, potassium 4.3, chloride 104, CO2 23, BUN 12, creatinine 0.8. Troponin within normal limits x3. EKG demonstrates sinus rhythm, no acute ST or T-wave changes. ASSESSMENT AND PLAN: Mr. Go is a 57-year-old gentleman with known coronary artery disease, status post recent stent placement in January of 2017, who presents with chest pain symptoms, some feat ures are suggestive of angina, while others are not. His initial EKG demonstrates no acute ST or T- wave changes. His initial troponin is within normal limits. Reviewed options for risk stratificati on including stress testing and cardiac catheterization. Also discussed the stress testing may reve al false-positive results this early post percutaneous coronary intervention. The patient wished to pursue cardiac catheterization for further risk stratification. Will arrange to have this performe d. /[id number]/MODL
--- NOTE | 2017-02-19 16:07 | HOSPPROG ---
Hospitalist Progress Note Assessment/Plan: 57-year-old with recent stent placement is admitted with recurrent chest pain. He was seen by Cardiology who plans to do an angiogram today. # CAD status post recent stent * Awaiting results of angiogram * Continue usual medications # anxiety,, patient quite anxious and may be exacerbating his chest pain # hypertension # dyslipidemia # polymyalgia rheumatica currently treated at the [facility] in weaning off prednisone # fibromyalgia Subjective: Patient new to be chart reviewed. Currently no chest pain. Quite anxious. Awaiting angiogram Objective: Vital Signs Temp Pulse Resp BP Pulse Ox 36.5 C 56 L 17 112/85 H 96 02/19/17 16:03 02/19/17 16:03 02/19/17 16:03 02/19/17 16:03 02/19/17 16:03 Laboratory Results 02/19/17 04:15 02/19/17 04:15 02/18/17 02/19/17 02/20/17 05:59 05:59 05:59 Intake Total 100 350 Output Total 175 0 Balance -75 350 - Physical Exam Constitutional: no apparent distress Cardiovascular: regular rate and rhythym, no murmur, rub, or gallop Respiratory: no respiratory distress, no rales or rhonchi, clear to auscultation Neurologic: AAOx3 Psychiatric: interacting appropriately, anxious ICD10 Worksheet Patient Problems: Problems Problem Status Onset Chest pain Acute
--- NOTE | 2017-02-19 16:41 | CPIP ---
[f rep st] INVASIVE CARDIAC PROCEDURE DATE OF PROCEDURE: 02/19/2017 PROCEDURES: 1. Coronary angiography. 2. Left ventriculography. INDICATION: 1. Known coronary artery disease, status post stenting of his left anterior descending coronary art radha and balloon angioplasty of his 2nd diagonal artery. 2. Recurrent chest pain concerning for ACS. ACCESS: Patient was prepped and draped in sterile fashion. Then 1% lidocaine was used to anestheti ze the right inguinal region. A 6-St Helenian introducer sheath was placed selectively into the right co mmon femoral artery via modified Seldinger technique. CORONARY ANGIOGRAPHY: A 6-St Helenian JL4 was advanced to the left main coronary artery and images obtai smith. The left main coronary artery trifurcated into an LAD, ramus and circumflex coronary arteries. The left main coronary artery appeared normal. The left anterior descending coronary artery gave rise to 2 prominent diagonal branches. The left anterior descending coronary artery had mild lumina l irregularities throughout. There was no stenosis greater than 15%. In the midvessel, a previousl y placed stent could be seen. The previously placed stent was widely patent, with no evidence of in -stent restenosis or thrombosis. The 2nd diagonal artery that was treated with balloon angioplasty was widely patent, with no evidence of significant stenosis. The ramus coronary artery appeared nor mal. The circumflex coronary artery was nondominant. Circumflex coronary artery appeared normal. A 6-St Helenian JR4 was advanced to the right coronary artery, did not engage the right coronary artery w ell, and was then exchanged for 6-St Helenian no-torque right catheter. The 6-St Helenian no-torque right cat heter was advanced to the right coronary artery and images obtained. The right coronary artery appe ared normal. LEFT VENTRICULOGRAPHY: A 6-St Helenian pigtail catheter was advanced in the left ventricle and images ob tained. Left ventricle was normal in size and had normal systolic function, estimated ejection frac tion of 60%. COMPLICATIONS: None. CONCLUSIONS: 1. Patent LAD stent with no evidence of in-stent restenosis. 2. No significant narrowing of the 2nd diagonal artery that was treated with angioplasty. 3. Normal left ventricular size and systolic function. 4. Plan is for medical management. /[id number]/MODL
[2017-02-19] MEDS: CYANO/VITAMIN B12 1000 MCG TAB PO SCH (20:06)
[2017-02-19] MEDS: MIRTAZAPINE 30 MG TAB PO SCH (20:06)
[2017-02-19] MEDS: BISOPROLOL FUMARATE 5 MG TAB PO SCH (20:07)
[2017-02-19] MEDS: ASPIRIN EC 325 MG TAB PO SCH (20:07)
[2017-02-19] MEDS: PHENobarbital 30 MG TAB PO SCH (20:08)
[2017-02-19] MEDS: LOSARTAN POTASSIUM 50 MG TAB PO SCH (20:09)
[2017-02-19] MEDS: risperiDONE 1 MG TAB PO SCH (20:10)
[2017-02-19] MEDS: VENLAFAXINE XR 75 MG CAP PO SCH (20:11)
[2017-02-19] MEDS: ZOLPIDEM TARTRATE 5 MG TAB PO PRN (20:19)
[2017-02-20] MEDS: KETOROLAC 15 MG/1 ML SDV IVP SCH ×2 (00:29→06:37)
[2017-02-20] MEDS: PROMETHAZINE HCL 25 MG/ML INJ IVP PRN (00:30)
[2017-02-20 02:42] LABS: HEMOGLOBIN A1C 6.2 % (4.0-6.0)
[2017-02-20] MEDS: ALPRAZolam 1 MG TAB PO PRN (04:40)
[2017-02-20 07:58] VITALS: BP 106/59; PULSE 53; RESP 11; TEMP 97.8; O2SAT 94
--- NOTE | 2017-02-20 09:37 | GDS ---
[f rep st] DISCHARGE SUMMARY DIAGNOSES: 1. Chest pain. 2. History of coronary artery disease. 3. Anxiety. 4. Hypertension. 5. Dyslipidemia. 6. Polymyalgia rheumatica. 7. Fibromyalgia. 8. Prediabetes. CONSULTATIONS: Dr. Luis Eduardo Boston from Cardiology. PROCEDURES DONE: 1. Chest and thoracic CT angiogram: Negative for PE. 2. Coronary angiography with left ventriculography: Patent LAD stent with no evidence of in-stent stenosis. No significant narrowing of the second diagonal artery that was treated with angioplasty and normal left ventricular function. HOSPITAL COURSE: The patient is a 57-year-old with a history of coronary artery disease. He was re cently admitted about 2 weeks ago with acute coronary syndrome and had a stent placed. He developed chest pain that was quite brief and atypical; however, given his recent history, he was admitted to the hospital and ruled out with serial enzymes and monitored on telemetry. He was taken to the cat h lab with the above findings. It was felt that his chest pain was noncardiac in origin, likely rel ated to anxiety given his history. He will go home and continue follow up with his primary care brielle barr. CONDITION ON DISCHARGE: Good. Vital signs are stable. He is alert and oriented. He is not compla ining of chest pain. DISCHARGE MEDICATIONS: Please see discharge medication form. No changes were made. FOLLOWUP: He should follow up with Dr. Goldberg as needed and follow up with Cardiology as rosario Robert #: [id number]
[2017-02-20] MEDS: predniSONE 1 MG TAB PO SCH (10:09)
[2017-02-20] MEDS: ATORVASTATIN CALCIUM 40 MG TAB PO SCH (10:09)
[2017-02-20] MEDS: CHOLECALCIFEROL VIT D3 1,000 UNITS TAB PO SCH (10:10)
[2017-02-20] MEDS: PANTOPRAZOLE SODIUM 40 MG TAB PO SCH (10:10)
[2017-02-20] MEDS: VENLAFAXINE XR 150 MG CAP PO SCH (10:10)
[2017-02-20] MEDS: PRASUGREL HCL 10 MG TAB PO SCH (10:10)
[2017-02-20] MEDS: ALPRAZolam 1 MG TAB PO SCH (10:10)
[2017-02-20] MEDS: BUTAL/ASP/CAFFEINE-FIORINAL 1 EACH CAP PO SCH (10:10)
[2017-02-20] MEDS: OXcarbazepine 300 MG TAB PO SCH (10:11)
[2017-02-20] MEDS: PREGABALIN 25 MG CAP PO SCH (10:11)
== END 2017-02-20 12:00 | disposition home or self-care (01) ==
LOC: F2W 16:00
PROVIDERS: ADMIT Internal Medicine; ATTEND Internal Medicine
PROC: B2111ZZ Fluoroscopy of Multiple Coronary Arteries using Low Osmolar Contrast (ICD-10-PCS; principal; 2017-02-18)
PROC: 4A023N7 Measurement of Cardiac Sampling and Pressure, Left Heart, Percutaneous Approach (ICD-10-PCS; principal; 2017-02-18)
PROC: B2151ZZ Fluoroscopy of Left Heart using Low Osmolar Contrast (ICD-10-PCS; principal; 2017-02-18)
DX: R07.9 Chest pain, unspecified (principal); Z86.79 Personal history of other diseases of the circulatory system; F41.9 Anxiety disorder, unspecified; I10 Essential (primary) hypertension; E78.5 Hyperlipidemia, unspecified; M35.3 Polymyalgia rheumatica; M79.7 Fibromyalgia; R73.03 Prediabetes
CPT/HCPCS: 71020; 71275; 93005; 93458; 99285; G0378; C1760; J1200; J1644; J1885; J2250; J2550; J3010; Q9967

== ENCOUNTER → 2017-03-09 | Outpatient (CLI) | payer BC ==
[~2017-03-09] MED LIST: REGADENOSON 0.4 MG/5 ML SYR IVP ONE
--- NOTE | 2017-03-09 15:45 | CPR ---
[f rep st] NONINVASIVE CARDIAC PROCEDURE REPORT STUDY: Lexiscan injection of Lexiscan MPI study. INDICATION FOR PROCEDURE: CAD with recent PCI and ongoing chest pressure. Evaluation of consent, e nsuring patient's n.p.o. status with caffeine for greater than 12 hours. Patient was placed on elec trocardiogram. Initial EKG shows sinus rhythm, normal axis, no 1st degree AV block, no significant ST or T-wave abnormalities. Initial blood pressure 130/80, saturation 94% on room air. Patient den ies any chest pain, shortness of breath, or symptoms suggesting ischemia. INJECTION: Patient was given Lexiscan injection slow IV push followed by nuclear isotope. Soon aft er injection, patient did report mild headache, blood pressure dropped down to 110/60, heart rate up to 82 beats per minute, but no significant EKG changes. Patient was given caffeinated beverages an d within 5 minutes, heart rate returned back to normal and blood pressure up to 128/70. Patient con tinued to report no chest pain or shortness of breath, and improvement in his headache. Saturation 97% on room air. IMPRESSION: A 57-year-old male with recent percutaneous coronary intervention with ongoing chest pr essure, being evaluated for potential of more cardiac ischemia. Patient underwent Lexiscan, reporti ng mild headache with injection and improvement with caffeinated beverage; no significant EKG change s. Vital signs are stable. No chest pressure or symptoms suggesting of ischemia. Patient is with nuclear medicine getting post MPI imaging done at this time. /[id number]/MODL
== END ==
LOC: FIMAGING 13:22
PROVIDERS: ATTEND Internal Medicine
DX: R07.9 Chest pain, unspecified (principal); I25.10 Atherosclerotic heart disease of native coronary artery without angina pectoris; R51 Headache
CPT/HCPCS: 78452; 93017; A9500; J2785

== ENCOUNTER 2017-06-02 12:37 | Emergency (ER) | payer BC ==
[2017-06-02 12:47] VITALS: BP 125/87; PULSE 58; RESP 15; TEMP 98.3; O2SAT 96
--- NOTE | 2017-06-02 14:38 | EDPHY ---
H & P Time Seen by Provider: 06/02/17 14:26 HPI/ROS: CHIEF COMPLAINT: Left 3rd digit injury HISTORY OF PRESENT ILLNESS: 57-year-old right-hand dominant male complaining of acute left 3rd digit injury which occurred yesterday when his dog's leash got wrapped around his finger in his dog pulled. He is complaining of pain to the middle digit proximal phalanx with limited range of motion secondary to pain. No malrotation. No break in skin. PHYSICAL EXAM (Prior to examination, patient consented to physical exam, hands were washed and my usual and customary physical exam procedures followed) 1) GENERAL: Well-developed, well-nourished, alert and oriented. Appears to be in no acute distress. 2) HEAD: Normocephalic 3) HEENT: sclera anicteric 4) LUNGS: Breathing comfortably. 5) SKIN: ecchymotic discoloration to the left 3rd digit proximal phalanx with associated tenderness at same location. MCP PIP DIP independently tested and no flexor or extensor deficits identified. 6) MUSCULOSKELETAL: no malrotation of digit. No signs of infection such as cellulitis or infectious tenosynovitis, negative kanavel sign. 7) NEUROLOGIC: Full sensation distally Smoking Status: Never smoked Constitutional: Initial Vital Signs Temperature (C) 36.8 C 06/02/17 12:43 Heart Rate 58 L 06/02/17 12:43 Respiratory Rate 15 06/02/17 12:43 Blood Pressure 125/87 H 06/02/17 12:43 O2 Sat (%) 96 06/02/17 12:43 O2 Delivery Mode Room Air Allergies/Adverse Reactions: No Known Allergies Allergy (Verified 02/18/17 13:16) Home Medications: Medication Instructions Recorded Oxcarbazepine [Trileptal] 600 mg PO BID 02/02/16 ALPRAZolam [Alprazolam Xr] 3 mg PO DAILY@89902/04/17 ALPRAZolam [Xanax Xr] 2 mg PO DAILY@2100 02/04/17 Butal/Asp/Caffeine-Fiorinal 1 each PO BID 02/04/17 [Fiorinal 50-325-40 mg Cap] Cholecalciferol Vit D3 [Vitamin D3 2,000 units PO DAILY@89902/04/17 (*)] Cyanocobalamin [Vitamin B12 (*)] 2,000 mcg PO DAILY@209902/04/17 Esomeprazole Mag Trihydrate 40 mg PO BID 02/04/17 [Nexium] Herbals/Supplements -Info Only 1 each IM Q30D 02/04/17 Losartan Potassium [Cozaar 50 mg 50 mg PO DAILY@209902/04/17 (*)] Mirtazapine [Remeron] 30 mg PO DAILY@209902/04/17 Oxcarbazepine [Trileptal] 150 mg PO BID 02/04/17 PHENobarbital [PHENobarbital 30mg 7.5 mg PO DAILY@209902/04/17 (*)] Sumatriptan Succinate [Imitrex] 100 mg PO ONCE PRN MDD 200 MG 02/04/17 Venlafaxine Xr [Effexor Xr 75MG 75 mg PO DAILY@209902/04/17 (*)] Venlafaxine Xr [Effexor Xr] 150 mg PO DAILY@0902/04/17 risperiDONE [Risperdal 1mg (*)] 1 mg PO DAILY@209902/04/17 Atorvastatin Calcium [Lipitor 40 80 mg PO DAILY #60 tab 02/09/17 mg (*)] Bisoprolol Fumarate [Zebeta (*)] 2.5 mg PO HS #30 tab 02/09/17 Prasugrel HCl [Effient 10mg (*)] 10 mg PO DAILY #30 tab 02/09/17 Aspirin EC [Aspirin EC 325 mg (*)] 325 mg PO HS 02/18/17 Pregabalin [Lyrica] 25 mg PO BID 02/18/17 predniSONE 2 mg PO DAILY 02/18/17 MDM/Departure - [facility] Imaging Results: Imaging Impressions Finger X-Ray 06/02/17 12:47 Impression: Negative. No fracture. Procedures: Procedure: Splint A mehran-tape and aluminum finger splint was applied by ER security system technician. After application of the splint I returned and re-examined the patient. The splint was adequately immobilizing the joint and distal to the splint the patient's circulation and sensation were intact. Patient shows no signs of compartment syndrome. Was given orthopedic precautions. - Depart Disposition: Home, Routine, Self-Care Clinical Impression: Sprain of left middle finger Qualifiers: Encounter type: initial encounter Sprain of finger site: unspecified site Qualified Code(s): S63.613A - Unspecified sprain of left middle finger, initial encounter Condition: Good Instructions: Finger Sprain (ED) Additional Instructions: Return to the ER immediately if you experience discoloration, have worsening pain, numbness, tingling, or any other symptoms that concern you. If you received x-rays in the emergency department today, be advised, that ligamentous , tendon, muscular, and other non-bony injury cannot be fully ruled out. Try to keep your affected extremity elevated above the level of your chest, and keep cold packs on the affected area, for the next 48 hours. Referrals: Bassem Jimenez MD [Medical Doctor] - 2-3 days, call for appt. (Dr. Jimenez is a hand surgeon)
== END 2017-06-02 15:21 | disposition home or self-care (01) ==
DX: S63.613A Unspecified sprain of left middle finger, initial encounter (principal); Z79.82 Long term (current) use of aspirin; W54.8XXA Other contact with dog, initial encounter

== ENCOUNTER 2017-06-12 19:53 | Observation (INO) | payer BC ==
--- NOTE | 2017-06-12 20:15 | CPEKG ---
Heart Rate: 78 RR Interval: 769 P-R Interval: 216 QRSD Interval: 88 QT Interval: 380 QTC Interval: 433 P [place]: 48 QRS [place]: 19 T Wave [place]: 17 EKG Severity - ABNORMAL ECG - EKG Impression: SINUS RHYTHM EKG Impression: FIRST DEGREE AV BLOCK Electronically Signed By: Jerry Jameson 13-Jun-2017 15:42:46
--- NOTE | 2017-06-12 20:17 | EDPHY ---
H & P Stated Complaint: CP x few hours, SOB HPI/ROS: CHIEF COMPLAINT: Chest pain, shortness of breath HISTORY OF PRESENT ILLNESS: The patient is a 57 y/o male with a history coronary artery disease and anxiety who underwent LAD stenting (January 2017), now complaining of chest pain and shortness of breath for 2 hours. He was re-evaluated 1 week after stent placement, when he experienced recurrent chest pain. At that time an angiogram indicated that the stent was patent. An echocardiogram and blood work recently were reportedly normal. 1.5 weeks ago he stopped taking Bisoprolol. Tonight he was performing strenuous activity and developed a throbbing chest pain that mildly radiated to the left side of his chest. It has since been waxing and waning. He has had a mild cough and sore throat this past week. He denies shortness of breath. No nausea or diaphoresis. Did take 325mg Aspirin today. Denies abdominal pain, weakness, numbness, fever or other pertinent symptoms. REVIEW OF SYSTEMS: A ten point review of systems was performed and is negative with the exception of the items mentioned in the HPI. Past medical history: Coronary artery disease Chronic fatigue Depression Anxiety Chronic back pain Migraines Past surgical history: LAD stent 02/07/2017 Family history: Mother had coronary artery stented age 65 Grandfather of stroke at 68 y/o Uncle had quadruple bypass in his 50's Social history: Lives in [place] Nonsmoker General Appearance: Alert. Vital signs reviewed. Blood pressure 135/98. Eyes: Pupils equal and round, no conjunctival injection, no discharge. Anicteric. ENT, Mouth: Mucous membranes are moist, no oropharyngeal erythema or edema. Neck: No lymphadenopathy, supple. No jugular venous distention. Respiratory: Lungs are clear to auscultation; no wheezes, rales, or rhonchi. Cardiovascular: Regular rate and rhythm; no murmur, rub, or gallop. Gastrointestinal: Abdomen is soft and nontender, no masses or organomegaly, bowel sounds normal. Skin: Warm and dry, no rashes on exposed skin, normal color. Back: Nontender to palpation over the thoracolumbar spine. No CVAT. Extremities: Trace bilateral lower extremity edema, no calf tenderness or swelling. Neurological: Alert and oriented. Moving all four extremities easily and equally. Psychiatric: Normal affect. - Personal History Current Tetanus/Diphtheria Vaccine: Yes - Medical/Surgical History Hx Asthma: No Hx Chronic Respiratory Disease: No Hx Diabetes: No Hx Cardiac Disease: Yes Hx Renal Disease: No Hx Cirrhosis: No Hx Alcoholism: No Hx HIV/AIDS: No Hx Splenectomy or Spleen Trauma: No Other PMH: chronic fatigue, depression, anxiety, elevated CRP Hx, chronic back pain bulging disc L4-L5(Dr Devlin), migraines,IBS. 1 cardiac stent placed 02/07/17 - Social History Smoking Status: Never smoked Constitutional: Initial Vital Signs Temperature (C) 36.5 C 06/12/17 19:53 Heart Rate 94 06/12/17 19:53 Respiratory Rate 18 06/12/17 19:53 Blood Pressure 135/98 H 06/12/17 19:53 O2 Sat (%) 97 06/12/17 19:53 O2 Delivery Mode Room Air Allergies/Adverse Reactions: No Known Allergies Allergy (Verified 06/12/17 19:58) Home Medications: Medication Instructions Recorded Oxcarbazepine [Trileptal] 600 mg PO BID 02/02/16 ALPRAZolam [Alprazolam Xr] 3 mg PO DAILY 02/04/17 ALPRAZolam [Xanax Xr] 2 mg PO HS 02/04/17 Butal/Asp/Caffeine-Fiorinal 1 each PO TID PRN 02/04/17 [Fiorinal 50-325-40 mg Cap] Cholecalciferol Vit D3 [Vitamin D3 2,000 units PO DAILY 02/04/17 (*)] Esomeprazole Mag Trihydrate 40 mg PO BID 02/04/17 [Nexium] Losartan Potassium [Cozaar 50 mg 50 mg PO HS 02/04/17 (*)] Oxcarbazepine [Trileptal] 150 mg PO BID 02/04/17 Sumatriptan Succinate [Imitrex] 100 mg PO ONCE PRN MDD 200 MG 02/04/17 Venlafaxine Xr [Effexor Xr 75MG 75 mg PO DAILY 02/04/17 (*)] Venlafaxine Xr [Effexor Xr] 150 mg PO DAILY 02/04/17 risperiDONE [Risperdal 1mg (*)] 1 mg PO HS 02/04/17 Atorvastatin Calcium [Lipitor 40 80 mg PO DAILY #60 tab 07/27/17 mg (*)] Prasugrel HCl [Effient 10mg (*)] 10 mg PO DAILY #30 tab 02/09/17 predniSONE 1 mg PO DAILY 02/18/17 Eszopiclone [Lunesta] 3 mg PO HS PRN 06/12/17 Zolpidem Tartrate [Ambien 5MG (*)] 10 mg PO HS PRN 06/12/17 hydrOXYzine HCL [hydrOXYzine HCL 50 mg PO HS PRN 06/12/17 (RX)] Ascorbic Acid [Vitamin C 500 mg 1,000 mg PO DAILY 06/13/17 (*)] Iron Ps Cmplx/Vit B12/FA [Ferrex 1 each PO DAILY 06/13/17 150 Forte Capsule] Ketorolac Tromethamine [Toradol 30 30 mg IM DAILY PRN 06/13/17 mg/ml Inj (*)] Lidocaine 4% Nasal [place] 1 spray EACHNARE DAILY PRN 06/13/17 Medical Decision Making - Diagnostics Imaging: I viewed and interpreted images myself ED Course/Re-evaluation: The patient is a 57 y/o male with a history of coronary artery disease status post LAD stenting presenting with chest pain and shortness of breath for 2 hours after exerting himself. On exam he has trace bilateral lower extremity edema, otherwise normal. 2012: The 12 lead EKG was interpreted by myself as sinus rhythm with a rate of 78. No acute ischemic findings. See hard copy and/or "tracemaster" electronic copy for interpretation. 2033: Patient's chest x-ray is negative for acute pulmonary disease. 324 mg PO Aspirin administered. 2210: Reassessed patient, he is feeling nauseous and still has mild chest pain. I have discussed admitting him for his chest pain; patient is comfortable with this plan. Nitroglycerin sublingual ordered. He has been resting on and off, fell asleep at one point. I suspect that anxiety plays a large component in his chest pain. However, given his known coronary artery disease I feel that overnight observation for serial troponins and other testing if needed is warranted. He is agreeable to this plan. 2214: Consulted with hospitalist service, Dr. Huddleston accepts admission of this patient. Differential Diagnosis: Chest pain including but not limited to myocardial ischemia, pulmonary embolus, chest wall pain, pleural inflammation and pulmonary infectious causes. - Data Points Laboratory Results: Laboratory Results 06/12/17 20:11 06/12/17 20:11 Medications Given: Discontinued Medications Acetaminophen (Tylenol) 1,000 mg PO Q6HRS PRN PRN Reason: Pain, Mild/Fever, Can Take PO Stop: 12/09/17 23:19 Last Admin: 06/13/17 08:13 Dose: 1,000 mg Alprazolam (Xanax) 1 mg PO TID KELVIN Stop: 12/10/17 11:14 Last Admin: 06/13/17 16:29 Dose: 1 mg Ascorbic Acid (Vitamin C) 1,000 mg PO DAILY KELVIN Stop: 12/10/17 09:59 Last Admin: 06/13/17 11:14 Dose: Not Given Aspirin (Aspirin) 324 mg PO EDNOW ONE Stop: 06/12/17 20:34 Last Admin: 06/12/17 20:50 Dose: 324 mg Atorvastatin Calcium (Lipitor) 80 mg PO ONCE ONE Stop: 06/13/17 13:16 Last Admin: 06/13/17 13:37 Dose: 80 mg Butalbital/Aspirin/Caffeine (Fiorinal 50-325-40 Mg Cap) 1 each PO TID PRN PRN Reason: Headache Stop: 12/10/17 09:57 Last Admin: 06/13/17 10:40 Dose: 1 each Ketorolac Tromethamine (Toradol) 30 mg IVP ONCE ONE Stop: 06/13/17 13:13 Last Admin: 06/13/17 13:38 Dose: 30 mg Nitroglycerin (Nitrostat) 0.4 mg SL EDNOW ONE Stop: 06/12/17 22:14 Last Admin: 06/12/17 22:15 Dose: 1 tab Oxcarbazepine (Trileptal) 150 mg PO BID [facility] Stop: 12/10/17 10:59 Last Admin: 06/13/17 11:16 Dose: 150 mg Oxcarbazepine (Trileptal) 600 mg PO BID KELVIN Stop: 12/10/17 10:59 Last Admin: 06/13/17 11:15 Dose: 600 mg Pantoprazole Sodium (Protonix) 40 mg PO BID KELVIN Stop: 12/10/17 10:29 Last Admin: 06/13/17 11:15 Dose: 40 mg Pneumococcal Polyvalent Vaccine (Pneumovax 23) 0.5 ml IM .ONCE ONE Stop: 06/13/17 13:31 Last Admin: 06/13/17 13:38 Dose: 0.5 ml Prasugrel (Effient) 10 mg PO DAILY [facility] Stop: 12/10/17 09:59 Last Admin: 06/13/17 11:21 Dose: 10 mg Prednisone (Prednisone) 1 mg PO ONCE ONE Stop: 06/13/17 13:16 Last Admin: 06/13/17 13:37 Dose: 1 mg Promethazine HCl (Phenergan) 12.5 mg IVP ONCE ONE Stop: 06/12/17 22:24 Last Admin: 06/12/17 22:27 Dose: 12.5 mg Promethazine HCl (Phenergan) 12.5 mg IVP ONCE ONE Stop: 06/13/17 13:13 Last Admin: 06/13/17 13:38 Dose: 12.5 mg Venlafaxine HCl (Effexor Xr) 150 mg PO DAILY [facility] Stop: 12/10/17 09:59 Last Admin: 06/13/17 11:15 Dose: 150 mg Venlafaxine HCl (Effexor Xr) 75 mg PO DAILY [facility] Stop: 12/10/17 09:59 Last Admin: 06/13/17 11:15 Dose: 75 mg Zolpidem Tartrate (Ambien) 10 mg PO HS PRN PRN Reason: Sleep/Insomnia Stop: 12/09/17 23:17 Last Admin: 06/12/17 23:41 Dose: 10 mg Departure - Departure Disposition: [facility] Inpatient Acute Clinical Impression: Chest pain Qualifiers: Chest pain type: other chest pain Qualified Code(s): R07.89 - Other chest pain Condition: Fair Report Scribed for: Radha Mak Report Scribed by: Yolanda Alicea Date of Report: 06/12/17 Time of Report: 20:18 Physician Review and Approval Statement: 06/12/17 20:17 Portions of this note were transcribed by the medical records secretary. I, Dr. Radha Mak, personally performed the history, physical exam, and medical decision- making; and confirmed the accuracy of the information in the transcribed note.
[2017-06-12] MEDS ORDERED: ASPIRIN 81 MG CHEWABLE TAB PO ONE (20:33)
[2017-06-12 20:45] LABS: % IMMATURE GRANULYOCYTES 0.2 % (0.0-1.1); ABSOLUTE IMMATURE GRANULOCYTES 0.02 10^3/uL (0.00-0.10); ADD DIFF? NO; ADD MORPH? NO; ADD SCAN? NO; ATYPICAL LYMPHOCYTE FLAG 10 (0-99); FRAGMENT RBC FLAG 0 (0-99); HEMATOCRIT 42.8 % (40.0-51.0); HEMOGLOBIN 14.4 g/dL (13.7-17.5); LEFT SHIFT FLG 0 (0-99); LIPEMIA HEMOLYSIS FLAG 80 (0-99); MEAN CELL HEMOGLOBIN 27.9 pg (27.9-34.1); MEAN CELL HEMOGLOBIN CONCENTR. 33.6 g/dL (32.4-36.7); MEAN CELL VOLUME 82.9 fL (81.5-99.8); MEAN PLATELET VOLUME 10.7 fL (8.7-11.7); PLATELET CLUMPS FLAG 0 (0-99); PLATELET COUNT 193 10^3/uL (150-400); RED BLOOD CELL COUNT 5.16 10^6/uL (4.40-6.38); RED CELL DISTRIBUTION WIDTH 14.7 % (11.5-15.2)
[2017-06-12 20:49] LABS: ANION GAP 14 mEq/L (8-16); CARBON DIOXIDE 24 mEq/l (22-31); CHLORIDE 102 mEq/L (97-110); CREATININE 0.8 mg/dL (0.7-1.3); GLOMERULAR FILTRATION RATE > 60; GLUCOSE 91 mg/dL (70-100); SODIUM 140 mEq/L (134-144)
[2017-06-12 21:01] LABS: TROPONIN I < 0.012 ng/mL (0.000-0.034)
[2017-06-12] MEDS ORDERED: NITROGLYCERIN 0.4 MG BTL SL ONE ×2 (22:13)
[2017-06-12] MEDS ORDERED: ACETAMINOPHEN 325 MG TAB PO PRN (22:17)
[2017-06-12] MEDS ORDERED: ONDANSETRON 4 MG/2 ML VIAL IVP PRN (22:17)
[2017-06-12] MEDS ORDERED: ONDANSETRON DISINTEGRATING 4 MG TAB PO PRN (22:17)
[2017-06-12] MEDS ORDERED: PROMETHAZINE HCL 25 MG/ML INJ IVP ONE (22:23)
[2017-06-12] MEDS ORDERED: PROMETHAZINE HCL 25 MG/ML INJ ONE (22:26)
[2017-06-12] MEDS ORDERED: ZOLPIDEM TARTRATE 5 MG TAB PO PRN (23:18)
[2017-06-12] MEDS: ACETAMINOPHEN 500 MG TAB PO PRN (23:42)
--- NOTE | 2017-06-13 01:14 | PDGENHP ---
History and Physical - Chief Complaint Chest pain - History of Present Illness 57 yo M w/ CAD s/p RACHEL to LAD on 01/30, HTN, PMR, FM, anxiety, and depression presents with chest pain. Patient was cleaning his house today and noted left- sided chest pain rated as 8/10 severity and describes as sharp and throbbing. The pain lasted one minute at a time and came and went several times. He thinks the nitroglycerin he received in the ED was helpful. He was chest pain free at the time of my evaluation. He had a stent placed to his LAD in January. He was admitted 2 weeks after with chest pain that was deemed non-cardiac after a cath showed a widely patient stent. He had a nuclear stress test in February that was unremarkable and he also reports TTE and vO2 testing [address] Stack that did not reveal any clearly abnormal findings. History Information - Allergies/Home Medication List Allergies/Adverse Reactions: No Known Allergies Allergy (Verified 06/12/17 19:58) Home Medications: Oxcarbazepine [Trileptal] 600 mg PO BID 02/02/16 [Last Taken 02/18/17] ALPRAZolam [Alprazolam Xr] 3 mg PO DAILY@89902/04/17 [Last Taken 02/18/17] ALPRAZolam [Xanax Xr] 2 mg PO DAILY@209902/04/17 [Last Taken 02/18/17] Butal/Asp/Caffeine-Fiorinal [Fiorinal 50-325-40 mg Cap] 1 each PO BID 02/04/17 [ Last Taken 02/04/17 09:00] Cholecalciferol Vit D3 [Vitamin D3 (*)] 2,000 units PO DAILY@89902/04/17 [ Last Taken 02/18/17] Cyanocobalamin [Vitamin B12 (*)] 2,000 mcg PO DAILY@209902/04/17 [Last Taken ] Esomeprazole Mag Trihydrate [Nexium] 40 mg PO BID 02/04/17 [Last Taken 02/18/17] Herbals/Supplements -Info Only 1 each IM Q30D 02/04/17 [Last Taken 02/18/17] Losartan Potassium [Cozaar 50 mg (*)] 50 mg PO DAILY@209902/04/17 [Last Taken 02/18/17] Oxcarbazepine [Trileptal] 150 mg PO BID 02/04/17 [Last Taken 02/18/17] Sumatriptan Succinate [Imitrex] 100 mg PO ONCE PRN MDD 200 MG 02/04/17 [Last Taken 02/18/17] Venlafaxine Xr [Effexor Xr 75MG (*)] 75 mg PO DAILY@2100 02/04/17 [Last Taken ] Venlafaxine Xr [Effexor Xr] 150 mg PO DAILY@0900 02/04/17 [Last Taken 02/18/17] risperiDONE [Risperdal 1mg (*)] 1 mg PO DAILY@2100 02/04/17 [Last Taken 02/18/17 ] Aspirin EC [Aspirin EC 325 mg (*)] 325 mg PO HS 02/18/17 [Last Taken 02/17/17] predniSONE 2 mg PO DAILY 02/18/17 [Last Taken 02/18/17] Ambien 06/12/17 [Last Taken Unknown] Hydroxyzine HCl 06/12/17 [Last Taken Unknown] Lunesta 06/12/17 [Last Taken Unknown] I have personally reviewed and updated: family history, medical history - Past Medical History coronary artery disease (s/p stent to LAD 02/07/17), fibromyalgia, hypertension, hyperlipidemia, migraines, psychiatric history (severe anxiety and depression) Additional medical history: JAYDA on CPAP. peripheral neuropathy. Possible polymyalgia rheumatica--chronic prednisone being weaned off. 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 Review of Systems Review of Systems: ROS: 10pt was reviewed & negative except for what was stated in HPI & below Physical Exam Physical Exam: Temp Pulse Resp BP Pulse Ox 36.6 C 86 16 121/101 H 94 06/12/17 23:06 06/12/17 23:06 06/12/17 23:06 06/12/17 23:06 06/12/17 23:06 Constitutional: no apparent distress, not in pain Eyes: PERRL, EOMI Ears, Nose, Mouth, Throat: moist mucous membranes, no oral mucosal ulcers Cardiovascular: regular rate and rhythym, no murmur, rub, or gallop Respiratory: no respiratory distress, clear to auscultation Gastrointestinal: normoactive bowel sounds, soft, non-tender abdomen Skin: warm, normal color Musculoskeletal: full muscle strength, no muscle tenderness Neurologic: AAOx3, CN II-XII Intact Psychiatric: interacting appropriately, not anxious Lab Data & Imaging Review 06/12/17 20:11 06/12/17 20:11 WBC 9.06 10^3/uL (3.80-9.50) 06/12/17 20:11 RBC 5.16 10^6/uL (4.40-6.38) 06/12/17 20:11 Hgb 14.4 g/dL (13.7-17.5) 06/12/17 20:11 Hct 42.8 % (40.0-51.0) 06/12/17 20:11 MCV 82.9 fL (81.5-99.8) 06/12/17 20:11 MCH 27.9 pg (27.9-34.1) 06/12/17 20:11 MCHC 33.6 g/dL (32.4-36.7) 06/12/17 20:11 RDW 14.7 % (11.5-15.2) 06/12/17 20:11 Plt Count 193 10^3/uL (150-400) 06/12/17 20:11 MPV 10.7 fL (8.7-11.7) 06/12/17 20:11 Neut % (Auto) 71.3 % (39.3-74.2) 06/12/17 20:11 Lymph % (Auto) 21.9 % (15.0-45.0) 06/12/17 20:11 [place] % (Auto) 6.0 % (4.5-13.0) 06/12/17 20:11 Eos % (Auto) 0.3 % (0.6-7.6) L 06/12/17 20:11 Baso % (Auto) 0.3 % (0.3-1.7) 06/12/17 20:11 Nucleat RBC Rel Count 0.0 % (0.0-0.2) 06/12/17 20:11 Absolute Neuts (auto) 6.46 10^3/uL (1.70-6.50) 06/12/17 20:11 Absolute Lymphs (auto) 1.98 10^3/uL (1.00-3.00) 06/12/17 20:11 Absolute Monos (auto) 0.54 10^3/uL (0.30-0.80) 06/12/17 20:11 Absolute Eos (auto) 0.03 10^3/uL (0.03-0.40) 06/12/17 20:11 Absolute Basos (auto) 0.03 10^3/uL (0.02-0.10) 06/12/17 20:11 Absolute Nucleated RBC 0.00 10^3/uL (0-0.01) 06/12/17 20:11 Immature Gran % 0.2 % (0.0-1.1) 06/12/17 20:11 Immature Gran # 0.02 10^3/uL (0.00-0.10) 06/12/17 20:11 Sodium 140 mEq/L (134-144) 06/12/17 20:11 Potassium 4.0 mEq/L (3.5-5.2) 06/12/17 20:11 Chloride 102 mEq/L (97-110) 06/12/17 20:11 Carbon Dioxide 24 mEq/l (22-31) 06/12/17 20:11 Anion Gap 14 mEq/L (8-16) 06/12/17 20:11 BUN 16 mg/dL (7-23) 06/12/17 20:11 Creatinine 0.8 mg/dL (0.7-1.3) 06/12/17 20:11 Estimated GFR > 60 06/12/17 20:11 Glucose 91 mg/dL (70-100) 06/12/17 20:11 Calcium 10.0 mg/dL (8.5-10.4) 06/12/17 20:11 Troponin I < 0.012 ng/mL (0.000-0.034) 06/12/17 20:11 Visualized and Interpreted Chest x-ray results: Yes Chest X-Ray results: no infiltrate Visualized and Interpreted EKG results: Yes EKG Interpretation: Positive for: normal sinsus rhythm Assessment & Plan Assessment: 57 yo M w/ CAD s/p RACHEL to LAD on 01/30, HTN, PMR, FM, anxiety, and depression presents with chest pain. Plan: 1. Chest pain - Some typical (started with exertion, better with NTG) and atypical features (brief, no relief with rest). Patient had a stent placed to LAD in January of this year; he has been compliant with DAPT since. Troponin and ECG unremarkable at time of admission. Patient has significant anxiety history, which may also be contributing. He had a normal nuclear stress test in February and recent testing with Dr. Stack as well. - Monitor on telemetry, trend cardiac enzymes - Will consult cardiology noting complicated cardiac history - NTG PRN for pain 2. Hx CAD - RACHEL to LAD in January. On DAPT, statin, and ARB as outpatient. Taken off of BB due to concern for dyspnea. Primary dramatic reader is Dr. Stack. - Continue home meds - Cardiology consult 3. HTN - On losartan as outpatient 4. Anxiety, depression - Takes multiple medications including Risperdal, Trileptal, Venlafaxine, and Xanax. Diet - NPO @ MN pending cardiac rule-out Code - Full Ppx - SCDs Dispo - Admit to observation status
[2017-06-13] MEDS ORDERED: NITROGLYCERIN 0.4 MG BTL SL PRN (01:17)
[2017-06-13 05:24] LABS: % IMMATURE GRANULYOCYTES 0.3 % (0.0-1.1); ABSOLUTE IMMATURE GRANULOCYTES 0.02 10^3/uL (0.00-0.10); ADD DIFF? NO; ADD MORPH? NO; ADD SCAN? NO; ATYPICAL LYMPHOCYTE FLAG 10 (0-99); FRAGMENT RBC FLAG 0 (0-99); HEMATOCRIT 36.6 % (40.0-51.0); HEMOGLOBIN 12.5 g/dL (13.7-17.5); LEFT SHIFT FLG 0 (0-99); LIPEMIA HEMOLYSIS FLAG 90 (0-99); MEAN CELL HEMOGLOBIN 28.5 pg (27.9-34.1); MEAN CELL HEMOGLOBIN CONCENTR. 34.2 g/dL (32.4-36.7); MEAN CELL VOLUME 83.6 fL (81.5-99.8); MEAN PLATELET VOLUME 10.8 fL (8.7-11.7); PLATELET CLUMPS FLAG 20 (0-99); PLATELET COUNT 158 10^3/uL (150-400); RED BLOOD CELL COUNT 4.38 10^6/uL (4.40-6.38)
[2017-06-13 05:51] LABS: ANION GAP 12 mEq/L (8-16); CALCIUM 8.8 mg/dL (8.5-10.4); CARBON DIOXIDE 23 mEq/l (22-31); CHLORIDE 107 mEq/L (97-110); CREATININE 0.7 mg/dL (0.7-1.3); GLOMERULAR FILTRATION RATE > 60; GLUCOSE 95 mg/dL (70-100); POTASSIUM 3.7 mEq/L (3.5-5.2); SODIUM 142 mEq/L (134-144)
[2017-06-13 06:00] LABS: TROPONIN I < 0.012 ng/mL (0.000-0.034)
[2017-06-13] MEDS: ACETAMINOPHEN 500 MG TAB PO PRN (08:13)
[2017-06-13] MEDS ORDERED: PNEUMOCOCCAL 0.5ML VACCINE VIAL IM ONE ×2 (08:43→13:30)
--- NOTE | 2017-06-13 09:55 | PDCARCONS ---
Cardiology Consult Reason for Consult: Chest pain Chief Complaint: Chest pain Requesting Physician: Naseem History of Present Illness: 57-year-old male known coronary disease history of LAD PCI status post diagnostic coronary angiogram in February showing patent stent without evidence of restenosis returns now for an episode of atypical chest pain. Last night he was doing errands in the house. He began to experience pounding in the chest. This was associated with shortness of breath and discomfort. There was some coolness and clamminess. He was unsure what to do and came to the emergency department for further evaluation. This morning continues to have seconds of discomfort which resolved. Medical history is complicated by anxiety with a disability related to his mental health. He has been on excellent medical therapy and compliant with dual antiplatelet therapy. 10 days ago he had a VO2 max treadmill which was notable for reduced exercise capacity without EKG changes concerning for ischemia. His beta-carina was stopped. He is enrolled in cardiac rehabilitation. Patient denies PND orthopnea. He has had no syncope or near syncope. Cardiac risk include hyperlipidemia. 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 Patient was recently out of town and developed cold-like symptoms including stuffy nose and sore throat. He denies fever or chills. He denies pleuritic chest pain. His pain is palpable on the left sternal margin. Cardiac database: PCI and stenting of the LAD with a drug-eluting stent on . History of obstructive sleep apnea with CPAP. History of hyperlipidemia. Recent exercise tolerance test on June 02 without evidence of ischemia. An VO2 of 22 cc/kilos per minute. Diagnostic angiogram in February of 2017. History Information - Allergies/Home Medication List Allergies/Adverse Reactions: No Known Allergies Allergy (Verified 06/12/17 19:58) Home Medications: Oxcarbazepine [Trileptal] 600 mg PO BID 02/02/16 [Last Taken 06/12/17 21:00] ALPRAZolam [Alprazolam Xr] 3 mg PO DAILY 02/04/17 [Last Taken 06/12/17] ALPRAZolam [Xanax Xr] 2 mg PO HS 02/04/17 [Last Taken 06/12/17] Butal/Asp/Caffeine-Fiorinal [Fiorinal 50-325-40 mg Cap] 1 each PO TID PRN [Last Taken 06/12/17 09:00] Cholecalciferol Vit D3 [Vitamin D3 (*)] 2,000 units PO DAILY 02/04/17 [Last Taken 06/12/17] Esomeprazole Mag Trihydrate [Nexium] 40 mg PO BID 02/04/17 [Last Taken 06/12/17 21:00] Losartan Potassium [Cozaar 50 mg (*)] 50 mg PO HS 02/04/17 [Last Taken 06/12/17] Oxcarbazepine [Trileptal] 150 mg PO BID 02/04/17 [Last Taken 06/12/17 21:00] Sumatriptan Succinate [Imitrex] 100 mg PO ONCE PRN MDD 200 MG 02/04/17 [Last Taken 3 Days Ago ~06/10/17] Venlafaxine Xr [Effexor Xr 75MG (*)] 75 mg PO DAILY 02/04/17 [Last Taken ] Venlafaxine Xr [Effexor Xr] 150 mg PO DAILY 02/04/17 [Last Taken 06/12/17] risperiDONE [Risperdal 1mg (*)] 1 mg PO HS 02/04/17 [Last Taken 06/12/17] predniSONE 1 mg PO DAILY 02/18/17 [Last Taken 06/12/17] Eszopiclone [Lunesta] 3 mg PO HS PRN 06/12/17 [Last Taken 3 Days Ago ~06/10/17] Zolpidem Tartrate [Ambien 5MG (*)] 10 mg PO HS PRN 06/12/17 [Last Taken 06/12/17 ] hydrOXYzine HCL [hydrOXYzine HCL (RX)] 50 mg PO HS PRN 06/12/17 [Last Taken Unknown] Ascorbic Acid [Vitamin C 500 mg (*)] 1,000 mg PO DAILY 06/13/17 [Last Taken 3 Days Ago ~06/10/17] Iron Ps Cmplx/Vit B12/FA [Ferrex 150 Forte Capsule] 1 each PO DAILY 06/13/17 [ Last Taken 3 Days Ago ~06/10/17] Ketorolac Tromethamine [Toradol 30 mg/ml Inj (*)] 30 mg IM DAILY PRN 06/13/17 [ Last Taken 4 Days Ago ~06/09/17] Lidocaine 4% Nasal Millen 1 spray EACHNARE DAILY PRN 06/13/17 [Last Taken 4 Days Ago ~06/09/17] I have personally reviewed and updated: family history, medical history, social history, surgical history Past Medical History: - Social History Smoking Status: Never smoked Cardiac History - Cardiac History Cardiac Risk Factors: lipidemia, male Timing/Duration: Days Severity: severe Location: other (Left-sided chest) Activities at Onset: emotional stress Modifying Factors: improves with: palpation Associated Symptoms: headaches Physical Exam Physical Exam: Temp Pulse Resp BP Pulse Ox 36.5 C 61 16 108/64 93 06/13/17 07:53 06/13/17 07:53 06/13/17 07:53 06/13/17 07:53 06/13/17 07:53 Constitutional: no apparent distress, appears nourished Eyes: PERRL, anicteric sclera, EOMI Ears, Nose, Mouth, Throat: moist mucous membranes, No oral thrush, No oral ulcer Cardiovascular: regular rate and rhythym, no murmur, rub, or gallop, No JVD Peripheral Pulses: 1+: carotid (R), carotid (L), 2+: femoral (R) (No bruit. No palpable mass), femoral (L), dorsalis-pedis (R), dorsalis-pedis (L) Respiratory: no respiratory distress, no rales or rhonchi Gastrointestinal: normoactive bowel sounds, soft, non-tender abdomen Genitourinary: no bladder fullness Skin: warm, normal color Musculoskeletal: full muscle strength, no muscle tenderness, No joint effusion, No muscular tenderness Neurologic: AAOx3, No facial droop Psychiatric: interacting appropriately Lymph, Heme, Immunologic: no cervical LAD, no supraclavicular LAD Lab and Imaging 06/13/17 04:45 06/13/17 04:45 WBC 7.16 10^3/uL (3.80-9.50) 06/13/17 04:45 RBC 4.38 10^6/uL (4.40-6.38) L 06/13/17 04:45 Hgb 12.5 g/dL (13.7-17.5) L 06/13/17 04:45 Hct 36.6 % (40.0-51.0) L 06/13/17 04:45 MCV 83.6 fL (81.5-99.8) 06/13/17 04:45 MCH 28.5 pg (27.9-34.1) 06/13/17 04:45 MCHC 34.2 g/dL (32.4-36.7) 06/13/17 04:45 RDW 15.0 % (11.5-15.2) 06/13/17 04:45 Plt Count 158 10^3/uL (150-400) 06/13/17 04:45 MPV 10.8 fL (8.7-11.7) 06/13/17 04:45 Neut % (Auto) 64.1 % (39.3-74.2) 06/13/17 04:45 Lymph % (Auto) 26.3 % (15.0-45.0) 06/13/17 04:45 Mcleod % (Auto) 7.4 % (4.5-13.0) 06/13/17 04:45 Eos % (Auto) 1.5 % (0.6-7.6) 06/13/17 04:45 Baso % (Auto) 0.4 % (0.3-1.7) 06/13/17 04:45 Nucleat RBC Rel Count 0.0 % (0.0-0.2) 06/13/17 04:45 Absolute Neuts (auto) 4.59 10^3/uL (1.70-6.50) 06/13/17 04:45 Absolute Lymphs (auto) 1.88 10^3/uL (1.00-3.00) 06/13/17 04:45 Absolute Monos (auto) 0.53 10^3/uL (0.30-0.80) 06/13/17 04:45 Absolute Eos (auto) 0.11 10^3/uL (0.03-0.40) 06/13/17 04:45 Absolute Basos (auto) 0.03 10^3/uL (0.02-0.10) 06/13/17 04:45 Absolute Nucleated RBC 0.00 10^3/uL (0-0.01) 06/13/17 04:45 Immature Gran % 0.3 % (0.0-1.1) 06/13/17 04:45 Immature Gran # 0.02 10^3/uL (0.00-0.10) 06/13/17 04:45 Sodium 142 mEq/L (134-144) 06/13/17 04:45 Potassium 3.7 mEq/L (3.5-5.2) 06/13/17 04:45 Chloride 107 mEq/L (97-110) 06/13/17 04:45 Carbon Dioxide 23 mEq/l (22-31) 06/13/17 04:45 Anion Gap 12 mEq/L (8-16) 06/13/17 04:45 BUN 17 mg/dL (7-23) 06/13/17 04:45 Creatinine 0.7 mg/dL (0.7-1.3) 06/13/17 04:45 Estimated GFR > 60 06/13/17 04:45 Glucose 95 mg/dL (70-100) 06/13/17 04:45 Calcium 8.8 mg/dL (8.5-10.4) 06/13/17 04:45 Magnesium 2.0 mg/dL (1.6-2.3) 06/13/17 04:45 Troponin I < 0.012 ng/mL (0.000-0.034) 06/13/17 04:45 Visualized and Interpreted imaging results: Yes Interpretation: Normal cardiac silhouette. No infiltrate. EKG additional interpertation: Sinus rhythm 1st degree AV block. No ST-T changes concerning for ischemia. A/P Assessment: Discussion: 57-year-old male known coronary artery disease history of LAD PCI with recent diagnostic angiogram showing no evidence of restenosis, no other focal areas of coronary artery disease, normal LV systolic function. He has been on excellent medical therapy including dual antiplatelet therapy. His risk factors are modified. He is in cardiac rehabilitation. He presents now with atypical clearly noncardiac chest pain associated with a nonischemic EKG and a negative troponin. Clinical history most consistent with palpitations may be related to anxiety complicated by hyperventilation. Recommendations: Ambulation on the floor. Await 2nd negative troponin. Discharge from the hospital with follow up Dr. Javed within 10 days. Discussed the importance of managing anxiety/discomfort going forward. Frequent evaluation in the clinic would be recommended. Plan: Await 2nd troponin. Ambulation on the pepper. Regular diet with plans for discharge this morning. Follow-up Dr. Javed 7-10 days. Past Medical History PMH: - Personal History Current Tetanus/Diphtheria Vaccine: Yes - Medical/Surgical History Hx Asthma: No Hx Chronic Respiratory Disease: No Hx Cardiac Disease: Yes Hx Diabetes: No Hx Renal Disease: No Hx Alcoholism: No Hx Cirrhosis: No Hx HIV/AIDS: No Hx Splenectomy or Spleen Trauma: No Other PMH: chronic fatigue, depression, anxiety, elevated CRP Hx, chronic back pain bulging disc L4-L5(Dr Devlin), migraines,IBS. 1 cardiac stent placed 02/07/17 - Family History Significant Family History: No pertinent family hx - Social History Smoking Status: Never smoked Drug Use: Marijuana (None in 18 months. Currently in recovery) Additional Social History: Lives alone with his dog. Minimal social support. He is in recovery with a sponsor. Review of Systems Review of Systems: - Review of Systems Constitutional: weakness. denies: chills, fever EENTM: nose congestion, sore throat Respiratory: shortness of breath Cardiac: chest pain, palpitations. denies: edema, irregular heart rate, lightheadedness, syncope Gastrointestinal/Abdominal: no symptoms reported Genitourinary: no symptoms Musculoskelatal: other (Pain in the right groin at the site have his prior arteriotomy) Skin: no symptoms Neurological: anxiety, headache Hematologic/Lymphatic: easy bleeding, easy bruising Immunologic/allergic: no symptoms reported
[2017-06-13] MEDS ORDERED: LIDOCAINE 4% EACHNARE PRN (09:58)
[2017-06-13] MEDS ORDERED: NON-FORMULARY NEW DRUG (Sumatriptan Succinate [Imitrex] 100 MG) PO PRN (09:58)
[2017-06-13] MEDS ORDERED: KETOROLAC 30 MG/1 ML SDV IM PRN (09:58)
[2017-06-13] MEDS ORDERED: hydrOXYzine HCL 25 MG TAB PO PRN (09:58)
[2017-06-13] MEDS ORDERED: BUTAL/ASP/CAFFEINE-FIORINAL 1 EACH CAP PO PRN (09:58)
[2017-06-13] MEDS ORDERED: ZOLPIDEM TARTRATE 5 MG TAB PO PRN (09:58)
[2017-06-13] MEDS ORDERED: ALPRAZOLAM 3 MG PO SCH (10:00)
[2017-06-13] MEDS ORDERED: VENLAFAXINE XR 150 MG CAP PO SCH (10:00)
[2017-06-13] MEDS ORDERED: NON-FORMULARY NEW DRUG (Esomeprazole Mag Trihydrate [Nexium] 40 MG) PO SCH (10:00)
[2017-06-13] MEDS ORDERED: PRASUGREL HCL 10 MG TAB PO SCH (10:00)
[2017-06-13] MEDS ORDERED: OXCARBAZEPINE 600 MG PO SCH (10:00)
[2017-06-13] MEDS ORDERED: VENLAFAXINE XR 75 MG CAP PO SCH (10:00)
[2017-06-13] MEDS ORDERED: ASCORBIC ACID 500 MG TAB PO SCH (10:00)
[2017-06-13] MEDS ORDERED: NON-FORMULARY NEW DRUG (Oxcarbazepine [Trileptal] 150 MG) PO SCH (10:00)
[2017-06-13] MEDS ORDERED: SUMAtriptan 50 MG TAB PO PRN (10:16)
[2017-06-13] MEDS ORDERED: PANTOPRAZOLE SODIUM 40 MG TAB PO SCH (10:30)
[2017-06-13] MEDS ORDERED: OXcarbazepine 300 MG TAB PO SCH ×2 (11:00)
--- NOTE | 2017-06-13 11:16 | ASMTCMCOM ---
CM Note CM Note Notes: 06/13/2017 Case Management Note Reviewed chart. There are no PT or OT evals ordered. No case management d/c needs identified d/t pt age, activity levels and friend support prior to admission. Case Management d/c poc: Anticipating Independent when medically stable with follow up as directed. Case Management available if needs change. Date Signed: 06/13/2017 11:16 AM Electronically Signed By:Echo Marcano RN
[2017-06-13] MEDS: ALPRAZolam 1 MG TAB PO SCH ×2 (11:18→16:29)
[2017-06-13] MEDS ORDERED: KETOROLAC 30 MG/1 ML SDV IVP ONE (13:12)
[2017-06-13] MEDS ORDERED: PROMETHAZINE HCL 25 MG/ML INJ IVP ONE (13:12)
[2017-06-13] MEDS ORDERED: predniSONE 1 MG TAB PO ONE (13:15)
[2017-06-13] MEDS ORDERED: ATORVASTATIN CALCIUM 40 MG TAB PO ONE (13:15)
--- NOTE | 2017-06-13 13:24 | HOSPPROG ---
Hospitalist Progress Note Assessment/Plan: 57 yo M w cp syndrome, known cad, repeat neg evals home today see dc summary Subjective: neg eval. d/w nika Objective: Vital Signs Temp Pulse Resp BP Pulse Ox 36.6 C 82 18 132/79 H 90 L 06/13/17 12:00 06/13/17 12:00 06/13/17 12:00 06/13/17 12:00 06/13/17 12:00 Laboratory Results 06/13/17 04:45 06/13/17 04:45 - Physical Exam Constitutional: no apparent distress, appears nourished Eyes: PERRL, anicteric sclera Ears, Nose, Mouth, Throat: moist mucous membranes, hearing normal Cardiovascular: regular rate and rhythym, no murmur, rub, or gallop Respiratory: no respiratory distress, no rales or rhonchi Gastrointestinal: normoactive bowel sounds, soft, non-tender abdomen Genitourinary: no bladder fullness, luu in urethra Skin: warm, no induration Musculoskeletal: full muscle strength Neurologic: AAOx3 ICD10 Worksheet Patient Problems: Problems Problem Status Onset Chest pain Acute Anxiety Acute Chest pain Acute
[2017-06-13 16:28] VITALS: BP 123/80; PULSE 67; RESP 14; TEMP 97.9; O2SAT 93
--- NOTE | 2017-06-13 20:31 | GDS ---
[f rep st] DISCHARGE SUMMARY DISCHARGE DIAGNOSES: 1. Known coronary artery disease with left anterior descending stent. 2. Chest pain syndrome. 3. Anxiety. HOSPITAL COURSE: Please see admission history and physical by Dr. Froylan Diamond. Patient present ed with chest pain. He had a nonischemic EKG and negative troponin on presentation. He has a histor y of coronary artery disease with LAD stent placed in January of this year. He has had numerous admissi ons for his chest pain syndrome since then with negative evaluations. He acknowledges the role of an xiety in this. In January, he presented after a positive stress test. He had a drug-eluting stent in t he mid LAD and he also had a balloon angioplasty of the principal diagonal branch ostium. He re-pres ented about a week thereafter and he had an angiogram performed in early February of this year which sh owed patent stents and patent angioplasty. He has had a couple of admissions and negative stress test, negative echocardiogram and this admissio n similar. We discussed the role of anxiety in this. He is optimal managed medical management inclu ding statin, aspirin and Effient. He is compliant. He is discharged today with outpatient followup with Dr. Javed his primary city administrator. /[id number]/MODL
[2017-06-13] MEDS ORDERED: LOSARTAN POTASSIUM 50 MG TAB PO SCH (21:00)
[2017-06-13] MEDS ORDERED: risperiDONE 1 MG TAB PO SCH (21:00)
[2017-06-14] MEDS ORDERED: IRON PS CMPLX PO SCH (09:00)
[2017-06-14] MEDS ORDERED: [UNRECOGNIZED DRUG - OTHER] PO SCH (09:00)
[2017-06-14] MEDS ORDERED: ATORVASTATIN CALCIUM 40 MG TAB PO SCH (09:00)
[2017-06-14] MEDS ORDERED: CHOLECALCIFEROL VIT D3 1,000 UNITS TAB PO SCH (09:00)
[2017-06-14] MEDS ORDERED: predniSONE 1 MG TAB PO SCH (09:00)
[2017-06-14] MEDS ORDERED: VIT B12 PO SCH (09:00)
== END 2017-06-13 17:08 | disposition home or self-care (01) ==
LOC: F2W 22:49
PROVIDERS: ADMIT Student in an Organized Health Care Education/Training Program; ATTEND Internal Medicine
DX: R07.9 Chest pain, unspecified (principal); I25.10 Atherosclerotic heart disease of native coronary artery without angina pectoris; F41.9 Anxiety disorder, unspecified; G89.29 Other chronic pain; G47.33 Obstructive sleep apnea (adult) (pediatric); E78.5 Hyperlipidemia, unspecified; Z95.5 Presence of coronary angioplasty implant and graft; Z82.49 Family history of ischemic heart disease and other diseases of the circulatory system; Z23 Encounter for immunization
CPT/HCPCS: 71020; 90471; 93005; G0378; G0009; J1885; J2550

== ENCOUNTER → 2017-11-10 | Outpatient (CLI) | payer BC ==
[~2017-11-10] MED LIST changes: +IOPAMIDOL (ISOVUE-300) 100 ML BTL ONE; -REGADENOSON 0.4 MG/5 ML SYR IVP ONE
== END ==
LOC: FIMAGING 13:07
PROVIDERS: ATTEND Internal Medicine
DX: N20.0 Calculus of kidney (principal); K57.30 Diverticulosis of large intestine without perforation or abscess without bleeding; K76.0 Fatty (change of) liver, not elsewhere classified; N41.3 Prostatocystitis
CPT/HCPCS: Q9967